=== PATIENT | male | born 1975 ===

== ENCOUNTER 2020-01-12 09:33 | Outpatient (REF) | payer OTHER, SELFPAY ==
[2020-01-12 11:06] LABS: Alanine Aminotransferase 23 U/L (0-40); Albumin Level 4.3 g/dL (3.5-5.0); Alkaline Phosphatase 60 U/L (39-117); Anion Gap 10 (12-20); Aspartate Amino Transferase 14 U/L (5-37); Bilirubin Total 0.4 mg/dL (0.0-1.0); Blood Urea Nitrogen 19 mg/dL (9-16); Calcium 9.4 mg/dL (8.4-10.2); Carbon Dioxide 31 mmol/L (22-29); Chloride 105 mmol/L (96-108); Cholesterol 160 mg/dL; Estimated Glomerular Filt Rate > 60; Glucose Fasting 82 mg/dL (60-99); HDL Cholesterol 40 mg/dL; LDL Cholesterol Calculated 105 mg/dl; Potassium 4.5 mmol/l (3.3-5.1); Sodium 141 mmol/L (135-145); Total Protein 6.9 g/dL (6.5-8.0); Triglycerides 77 mg/dL; Uric Acid 9.1 mg/dL (3.4-7.0)
[2020-01-12 11:25] LABS: Total Protein Urine Random 10 mg/dL (<12)
== END 2020-01-12 09:34 | disposition home or self-care (01) ==
LOC: HO.LAB 09:33
PROVIDERS: PCP Internal Medicine; Visit Provider Internal Medicine
DX: M1A.4710 Other secondary chronic gout, right ankle and foot, without tophus (tophi) (principal); I10 Essential (primary) hypertension; R80.0 Isolated proteinuria
CPT/HCPCS: 36415; 80053; 80061; 84156; 84550

== ENCOUNTER 2020-02-26 06:37 | Outpatient (REF) | payer OTHER, SELFPAY ==
[2020-02-26 07:50] LABS: Glucose Urine UA NEG (NEG); Leukocyte Esterase Urine NEG (NEG); Nitrite Urine NEG (NEG); Specific Gravity - Urine 1.025 (1.005-1.025); Urine Blood NEG (NEG); Urine Ketones NEG (NEG); Urine Protein NEG (NEG-TRACE)
[2020-02-26 07:52] LABS: Appearance Urine CLEAR; Color Urine YELLOW
[2020-02-26 08:01] LABS: MANUAL DIFF FLAG NO
[2020-02-26 08:04] LABS: Basophils Percent Auto 0.4 % (0-2); Eosinophils Absolute Auto 0.2 X10*3/uL (0.0-0.4); Eosinophils Percent Auto 2.1 % (0-4); Hematocrit 45.3 % (42-52); Hemoglobin 14.3 g/dl (14.0-18.0); Imm Gran Abs Auto 0.02 X10*3/uL (0.00-0.03); Imm Gran Pct Auto 0.3 % (0.0-0.4); Lymphocytes Absolute Auto 1.7 X10*3/uL (1.2-4.9); Lymphocytes Percent Auto 22.2 % (20-40); Mean Corpuscular HGB Conc 31.6 g/dl (31.0-36.0); Mean Corpuscular Volume 82.4 fL (80-98); Mean Platelet Volume 11.1 fL (9.4-12.4); Monocytes Absolute Auto 0.8 X10*3/uL (0.1-1.2); Neutrophils Absolute Auto 4.9 X10*3/uL (2.0-8.3); Platelet Count 253 X10*3/uL (160-400); Red Cell Distribution Width 13.5 % (11.0-16.0); White Blood Count 7.5 X10*3/uL (4.8-10.8)
[2020-02-26 09:17] LABS: Anion Gap 11 (12-20); Blood Urea Nitrogen 13 mg/dL (9-16); Carbon Dioxide 29 mmol/L (22-29); Chloride 105 mmol/L (96-108); Estimated Glomerular Filt Rate > 60; Potassium 4.4 mmol/l (3.3-5.1); Sodium 141 mmol/L (135-145)
[2020-02-26 09:26] LABS: Creatinine Urine 146.99 mg/dL; Total Protein Urine Random 12 mg/dL (<12)
== END 2020-02-26 06:38 | disposition home or self-care (01) ==
LOC: HO.LAB 06:37
PROVIDERS: PCP Internal Medicine; Visit Provider Internal Medicine Hypertension Specialist
DX: N18.2 Chronic kidney disease, stage 2 (mild) (principal); R79.89 Other specified abnormal findings of blood chemistry; R80.9 Proteinuria, unspecified
CPT/HCPCS: 36415; 80051; 81003; 82310; 82565; 84156; 84520; 85025

== ENCOUNTER 2020-03-19 13:52 | Outpatient (REF) | payer OTHER, SELFPAY ==
--- NOTE | 2020-03-19 | US_ITS ---
EXAMINATION: US RETROPERITONEAL LIMITED (RENAL ONLY) CLINICAL INFORMATION: Renal stone. COMPARISON: None TECHNIQUE: Real-time imaging of the kidneys. FINDINGS: RIGHT KIDNEY: 10.4 x 6.0 x 4.8 cm (SAG x AP x TRV). The kidney is normal in size, contour, and echogenicity. Renal cortical thickness is normal. No renal calculi or hydronephrosis. There is anechoic cyst upper pole measuring 2.2 x 1.9 x 2.3 cm. An extrarenal kidney pelvises noted. LEFT KIDNEY: 12.0 x 6.2 x 6.1 cm (SAG x AP x TRV). The kidney is normal in size, contour, and echogenicity. Renal cortical thickness is normal. No calculi or focal parenchymal lesions. No hydronephrosis. And extrarenal kidney pelvises seen. US/US renal BI IMPRESSION: Anechoic cyst upper pole right kidney. Bilateral extrarenal kidney pelvises. No echogenic stones seen..
== END 2020-03-19 13:53 | disposition home or self-care (01) ==
LOC: HO.US 13:52
PROVIDERS: PCP Internal Medicine; Visit Provider Internal Medicine Hypertension Specialist
DX: N18.2 Chronic kidney disease, stage 2 (mild) (principal); R79.89 Other specified abnormal findings of blood chemistry; R80.9 Proteinuria, unspecified
CPT/HCPCS: 76775

== ENCOUNTER 2020-04-21 10:59 | Outpatient (REF) | payer OTHER, SELFPAY | END 2020-04-21 11:00 | disposition home or self-care (01) | LOC: HO.LAB 10:59 | PROVIDERS: PCP Internal Medicine; Visit Provider Internal Medicine | DX: Z20.822 Contact with and (suspected) exposure to COVID-19 (principal) | CPT/HCPCS: 36415; C9803; U0003 ==

== ENCOUNTER 2020-06-21 07:48 | Outpatient (REF) | payer OTHER, SELFPAY ==
[2020-06-21 09:03] LABS: Alanine Aminotransferase 32 U/L (0-40); Albumin Level 4.6 g/dL (3.5-5.0); Alkaline Phosphatase 65 U/L (39-117); Anion Gap 13 (12-20); Aspartate Amino Transferase 27 U/L (5-37); Bilirubin Total 0.9 mg/dL (0.0-1.0); Blood Urea Nitrogen 21 mg/dL (9-16); Calcium 9.9 mg/dL (8.4-10.2); Carbon Dioxide 28 mmol/L (22-29); Chloride 104 mmol/L (96-108); Cholesterol 182 mg/dL; Estimated Glomerular Filt Rate > 60; Glucose Fasting 81 mg/dL (60-99); HDL Cholesterol 54 mg/dL; LDL Cholesterol Calculated 113 mg/dl; Sodium 140 mmol/L (135-145); Total Protein 7.7 g/dL (6.5-8.0); Triglycerides 75 mg/dL; Uric Acid 8.3 mg/dL (3.4-7.0)
[2020-06-21 09:06] LABS: Albumin Level 4.7 g/dL (3.5-5.0); Anion Gap 13 (12-20); Blood Urea Nitrogen 22 mg/dL (9-16); Calcium 9.8 mg/dL (8.4-10.2); Carbon Dioxide 28 mmol/L (22-29); Chloride 104 mmol/L (96-108); Estimated Glomerular Filt Rate > 60; Magnesium 1.9 mg/dL (1.6-2.6); Phosphorus 3.9 mg/dL (2.7-4.5); Potassium 5.1 mmol/L (3.3-5.1); Sodium 140 mmol/L (135-145); Uric Acid 8.3 mg/dL (3.4-7.0)
[2020-06-23 16:07] LABS: Calcium (PTHI) 10.4 mg/dL (8.6-10.3); PTHI 38 pg/mL (14-64)
== END 2020-06-21 07:49 | disposition home or self-care (01) ==
LOC: HO.LAB 07:48
PROVIDERS: PCP Internal Medicine; Visit Provider Internal Medicine Hypertension Specialist
DX: I10 Essential (primary) hypertension (principal); M10.9 Gout, unspecified; R79.89 Other specified abnormal findings of blood chemistry; R80.9 Proteinuria, unspecified; N18.2 Chronic kidney disease, stage 2 (mild)
CPT/HCPCS: 36415; 80051; 80053; 80061; 82040; 82310; 82565; 83735; 83970; 84100; 84520; 84550

== ENCOUNTER 2020-06-23 07:40 | Outpatient (REF) | payer OTHER, SELFPAY ==
[2020-06-23 08:17] LABS: Total Volume 24 Hour Urine 2950 mL
[2020-06-23 09:23] LABS: Creatinine, 24Hr Urine 2.3 G/Day (1.0-2.0); Creatinine, mg/dL 76.53; Uric Acid, 24 Hr Urine 764.1 mg/Day (250-750); Uric Acid, mg/dL 25.9 mg/dL
[2020-06-23 09:26] LABS: Creatinine, 24Hr Urine 2.4 G/Day (1.0-2.0); Creatinine, mg/dL 81.26; Phosphorus mg/dL 48.1 mg/dL; Phosphorus, 24 Hr Urine 1.4 G/Day (0.4-1.3); Sodium 24 Hr Urine 277.3 mmol/Day (40-220)
[2020-06-24 20:17] LABS: Calcium, 24 Hr Urine 74 mg/24 h; Calcium/Creatinine Ratio 30 mg/g creat (30-210); Creatinine 24Hr Urine 2.48 g/24 h (0.50-2.15)
[2020-06-27 07:06] LABS: Creatinine, 24H Ur 2.41 g/24 h (0.50-2.15); Magnesium, 24H Urine 99 mg/24 h (28-180); Magnesium, Urine 24H/g Creat 41 mg/g creat (16-90); Total Volume 2950 mL
[2020-06-30 13:48] LABS: 24hr Urine Total Volume 2950 mL/24 h; Creatinine, 24U 2.48 g/24 h (0.50-2.15); Oxalic Acid 24 Urine 38.4 mg/24 h (3.6-38.0)
[2020-07-03 13:48] LABS: Citric Acid, 24hr Urine 319 mg/24 h (100-1300); Citric Acid/Creat Ratio 24U 174 mg/g creat (60-660)
== END 2020-06-23 07:41 | disposition home or self-care (01) ==
LOC: HO.LNP 07:40
PROVIDERS: Visit Provider Internal Medicine Hypertension Specialist
DX: R79.89 Other specified abnormal findings of blood chemistry (principal); R80.9 Proteinuria, unspecified; N18.2 Chronic kidney disease, stage 2 (mild)
CPT/HCPCS: 82340; 82507; 83735; 83945; 84105; 84300; 84560

== ENCOUNTER → 2020-11-07 10:52 | Outpatient (BNVA) | payer OTHER, SELFPAY | PROVIDERS: PCP Internal Medicine; Visit Provider Urology ==

== ENCOUNTER 2020-12-01 15:08 | Emergency (ER) | payer OTHER, SELFPAY ==
--- NOTE | ~2020-12-01 | XR_ITS ---
EXAMINATION: XR LUMBOSACRAL SPINE CLINICAL INFORMATION: Pain, work injury COMPARISON: None TECHNIQUE: Three views of the lumbosacral spine. FINDINGS: Mild right convex curvature of the lumbar spine. No significant loss of vertebral body or disc height. Endplate osteophytes are seen throughout the lumbar spine. No acute fracture. Sacroiliac joints unremarkable. XR/XR lumbar spine 2-3V IMPRESSION: Mild degenerative changes. No acute compression fracture or acute osseous abnormality is seen.
[2020-12-01 18:18] VITALS: BP 119/87; PULSE 68; RESP 14; TEMP 36.6; O2SAT 99; BMI 30.4
--- NOTE | 2020-12-01 18:41 | ED_ITS ---
HPI - Back Pain/Injury General Chief Complaint: Back Pain/Injury Stated Complaint: work inj Time Seen by Provider: 12/01/20 18:11 Source: patient and aerial photograph interpreter Mode of arrival: ambulatory Limitations: no limitations and language barrier History of Present Illness HPI Narrative: 44-year-old male with a past medical history of lower back pain after an accident 3 years ago here with acute on chronic low back pain after lifting a heavy object at work today. Pain radiates to both legs. There is no numbness or tingling. No bowel or bladder incontinence. No saddle anesthesia. No fevers or chills. The patient is ambulatory. He does have a past medical history of kidney disease, gout and high blood pressure. Related Data Previous Rx's Medication Instructions Recorded colchicine 0.6 mg tablet 0.6 mg PO DAILY 90 Days #90 tab 01/30/20 allopurinol 100 mg tablet 100 mg PO DAILY 90 Days #90 tab 03/13/20 lisinopril 10 mg tablet 10 mg PO DAILY 90 Days #90 tab 03/13/20 acetaminophen 300 mg-codeine 30 mg 1 tab PO Q8H #7 tab 11/07/20 tablet diazepam 2 mg tablet (Valium) 2 mg PO DAILY #2 tab 11/07/20 cyclobenzaprine 10 mg tablet 10 mg PO TID PRN #10 tab 12/01/20 hydrocodone 5 mg-acetaminophen 300 1 tab PO Q6H PRN #5 tab 12/01/20 mg tablet lidocaine 5 % topical patch 1 patch TOPICAL DAILY #15 ea 12/01/20 (Lidoderm) Allergies Allergy/AdvReac Type Severity Reaction Status Date / Time ibuprofen Allergy Intermediate contraindic Verified 12/01/20 18:25 ated Review of Systems Review of Systems: Yes all other systems are reviewed and are negative Constitutional: Constitutional: Reports no additional constitutional complaints, Denies body ache(s), Denies chills, Denies fever(s), Denies headache(s) and Denies weakness Eyes: Eyes: Reports no additional eye complaints and Denies change in vision ENT: Reports system reviewed and no additional complaints, except as do cumented, Denies dizziness, Denies headache(s), Denies nasal congestion, Denies nasal discharge and Denies neck pain Cardiovascular: Cardiovascular: Reports no additional cardiovascular complaints, Denies chest pain, Denies leg edema and Denies dyspnea Respiratory: Respiratory: Reports no additional respiratory complaints, Denies cough and Denies dyspnea Gastrointestinal: Gastrointestinal: Reports no additional gastrointestinal complaints, Denies abdominal pain, Denies diarrhea, Denies nausea and Denies vomiting Genitourinary: Genitourinary: Denies urinary incontinence Musculoskeletal: Musculoskeletal: Reports no additional musculoskeletal complaints, Reports back pain, Denies arthralgias, Denies joint swelling, Denies neck pain, Denies numbness and Denies tingling Integumentary/Breasts: Skin/Breast: Reports system reviewed and no additional complaints, except as docu and Denies rash Neurologic: Reports system reviewed and no additional complaints, except as documented, Denies Abnormal speech present, Denies dizziness, Denies head ache(s), Denies numbness, Denies tingling and Denies weakness PMFSH Past Medical History Attestation statement: The following information was validated with the patient. Source: old records reviewed and nursing notes reviewed Medical History Essential hypertension Gout Proteinuria Vasectomy evaluation Surgical History No pertinent past surgical history Family History Family History Father Diabetes Hypertension CVD (cardiovascular disease) Mother No problems noted. Maternal Grandfather Cancer Social History Social History Alcohol intake: current Alcohol intake frequency: a few times a month Alcohol type: beer Advance Directives: No Advance Directives Information Provided: Yes Physical Exam Vital Signs: Vital Signs: Last Vital Signs Temp 97.8 F 12/01/20 18:18 Pulse 68 12/01/20 18:18 Resp 14 12/01/20 18:18 BP 119/87 12/01/20 18:18 Pulse Ox 99 12/01/20 18:18 Body Mass Index 30.4 Const: General: cooperative, healthy appearing, comfortable and no acute distress Orientation/consciousness: patient oriented x3 Limitations: no limitations HENMT: Head: Yes normal to inspection Ears: hearing grossly normal bilaterally General nose exam: Normal external nose present Face and sinus: Yes normal facial exam Mouth: Normal oral and palatal mucosa present Throat: Yes posterior oropharynx normal Eyes: General: appearance normal, both eyes and all related structures Pupils: Equal, round and reactive pupils present Neck: Neck: Yes normal visual inspection Chest: Chest palpation & inspection: normal inspection of the chest Resp: Effort & Inspection: normal respiratory effort Auscultation: clear to auscultation bilaterally Cardio: Rate: regular rate Rhythm: regular rhythm Peripheral pulses: Peripheral pulses 2+ throughout GI: Inspection: Yes normal to inspection Palpation (GI): Soft to palpation and nontender Auscultation: normal bowel sounds Back/Spine/Pelvis: Other: Midline lumbar tenderness with no step-offs or deformities. Patient also has bilateral lumbar soft tissue tenderness. Pain is worsened with bilateral straight leg raise Thoracic/Lumbar Spine: thoracic and lumbar spine normal to inspection Skin: General skin exam: no rashes or lesions noted Neuro: General: patient oriented x3, no focal motor deficits and normal sensation to monofilament Cranial nerves: Yes Equal, round and reactive pupils present Cognition (Neuro): normal cognition Speech: No Abnormal speech present Gait exam (Neuro): Normal gait present Motor exam (neuro): 5/5 motor strength present throughout Extrem: General: Yes normal to inspection Course Course Course Narrative: Acute on chronic low back pain after lifting injury at work. Does have midline tenderness of will check x-rays. No neurological deficits or red flag symptoms. 2030-x-ray shows arthritic changes but no acute finding. Likely lumbar strain. Reviewed worrisome signs and symptoms of when to return to the emergency department. Comfortable discharge home. MDM - Back Pain/Injury Medical Records Attestation: I reviewed the patient's medical records. Lab Data Attestation: I reviewed the patient's lab results. 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 FINDINGS: Mild right convex curvature of the lumbar spine. No significant loss of vertebral body or disc height. Endplate osteophytes are seen throughout the lumbar spine. No acute fracture. Sacroiliac joints unremarkable. XR/XR lumbar spine 2-3V IMPRESSION: Mild degenerative changes. No acute compression fracture or acute osseous abnormality is seen. ECG Data Prior ECG tracings: available for review Discharge Plan Discharge Clinical Impression: Strain of lumbar region Patient Disposition: Home, Self-Care Instructions: Low Back Strain (ED) Additional Instructions: Your x-rays show no acute finding. Heat or ice Gentle stretching No heavy lifting or bending Call work connection for a follow-up appointment ?[phone] Prescriptions: New cyclobenzaprine 10 mg tablet 10 mg PO TID PRN (Reason: muscle spasm) Qty: 10 RF: 0 lidocaine [Lidoderm] 5 % adhesive patch,medicated 1 patch topical DAILY Qty: 15 RF: 0 hydrocodone-acetaminophen 5-300 mg tablet 1 tab PO Q6H PRN (Reason: pain) Qty: 5 RF: 0 No Action colchicine 0.6 mg tablet 0.6 mg PO DAILY 90 Days Qty: 90 RF: 1 lisinopril 10 mg tablet 10 mg PO DAILY 90 Days Qty: 90 RF: 3 allopurinol 100 mg tablet 100 mg PO DAILY 90 Days Qty: 90 RF: 3 diazepam [Valium] 2 mg tablet 2 mg PO DAILY Qty: 2 RF: 0 acetaminophen-codeine 300-30 mg tablet 1 tab PO Q8H Qty: 7 RF: 0 Referrals: Madeleine Polanco MD [Primary Care Provider] - 2 days (as needed) Stand Alone Forms: Work/School Release Print Language: Welsh
== END 2020-12-01 20:34 | disposition home or self-care (01) ==
PROVIDERS: Emergency Provider Internal Medicine; PCP Internal Medicine
DX: S39.012A Strain of muscle, fascia and tendon of lower back, initial encounter (principal); X50.0XXA Overexertion from strenuous movement or load, initial encounter; Y93.9 Activity, unspecified; Y92.9 Unspecified place or not applicable; Y99.0 Civilian activity done for income or pay; Z79.899 Other long term (current) drug therapy
CPT/HCPCS: 72100; 99283

== ENCOUNTER 2021-01-09 06:02 | Outpatient (REF) | payer OTHER, SELFPAY ==
[2021-01-09 07:42] LABS: Anion Gap 12 (12-20); Blood Urea Nitrogen 21 mg/dL (9-16); Calcium 9.8 mg/dL (8.4-10.2); Carbon Dioxide 29 mmol/L (22-29); Chloride 104 mmol/L (96-108); Estimated Glomerular Filt Rate 58; Potassium 4.8 mmol/L (3.3-5.1); Sodium 140 mmol/L (135-145)
[2021-01-09 07:45] LABS: Alanine Aminotransferase 38 U/L (0-40); Albumin Level 4.4 g/dL (3.5-5.0); Alkaline Phosphatase 72 U/L (39-117); Anion Gap 11 (12-20); Aspartate Amino Transferase 27 U/L (5-37); Bilirubin Total 0.7 mg/dL (0.0-1.0); Blood Urea Nitrogen 21 mg/dL (9-16); Calcium 9.8 mg/dL (8.4-10.2); Carbon Dioxide 31 mmol/L (22-29); Chloride 104 mmol/L (96-108); Cholesterol 180 mg/dL; Estimated Glomerular Filt Rate 57; Glucose Fasting 89 mg/dL (60-99); HDL Cholesterol 44 mg/dL; LDL Cholesterol Calculated 120 mg/dl; Potassium 4.9 mmol/L (3.3-5.1); Sodium 141 mmol/L (135-145); Total Protein 7.3 g/dL (6.5-8.0); Triglycerides 83 mg/dL; Uric Acid 7.7 mg/dL (3.4-7.0)
[2021-01-09 08:56] LABS: Creatinine Urine 140.92 mg/dL; Protein/Creatinine Ratio, Ur 0.12 (<0.2); Total Protein Urine Random 17 mg/dL (<12)
== END 2021-01-09 06:03 | disposition home or self-care (01) ==
LOC: HO.LAB 06:02
PROVIDERS: Absent Provider Internal Medicine Hypertension Specialist; PCP Internal Medicine; Visit Provider Internal Medicine
DX: I10 Essential (primary) hypertension (principal); R80.8 Other proteinuria; E78.5 Hyperlipidemia, unspecified; M1A.0710 Idiopathic chronic gout, right ankle and foot, without tophus (tophi)
CPT/HCPCS: 36415; 80051; 80053; 80061; 82310; 82565; 84156; 84520; 84550

== ENCOUNTER 2021-03-24 17:00 | Outpatient (RCR) | payer OTHER, SELFPAY ==
--- NOTE | 2021-02-11 18:15 | MHC.PT.EP ---
[facility] [place] Office [place] Office [place] Office [address] Norm Peacock [address] [phone] F: [phone] F: [phone] F: [phone] F: [phone] Physical Therapy Plan of Care Date of Evaluation: Date of Surgery: n/a Diagnosis: low back pain Assessment: Patient is a 45 year old male presenting to PT with complaints of pain in in his low back. Pt reports onset of pain began November 2020 due to lifting a piece of wood. He presents today with impairments in pain, hip strength, core strength, and posture. 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 Clinical presentation today is most consistent with signs and sx associated with low back pain that is likely myofascial in nature and pt will benefit from skilled PT to address the following problems and impairments noted upon evaluation: pain, hip strength, core strength, and posture . These problems limit the patient with the following functional activities: bending, twisting, lifting, standing >1-2 hr, work (mopping, sweeping). The prescribed treatment plan of care is medically necessary. Co-morbidities of HTN were identified and taken into considerations of plan of care. Pt was educated on HEP, role of PT, prognosis, POC, lumbar anatomy. Frequency and Duration: The patient will be seen 2x week x 2 weeks and 1 x week x 1 week Short Term Goals: Pt will demonstrate improved hip strength by 1/3 MMT in 2 weeks for improved lumbopelvic stability. Pt will demosntrate improved ability to recruit TA muscles as evidence by good PPT in 2 weeks for improved core strength. Pt will demonstrate improved postural awareness by sitting with biomechanically correct posture without cues throughout session to improve overall postural function in 2 weeks. 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 Pt will demonstrate ability to stand x 1 hour with min to no pain in 4 weeks to allow return to PLOF. Pt will demonstrate ability to twist and lift with min to no pain in 4 weeks to improve tolerance to sweeping and mopping. Treatment Plan: Modalities to reduce pain, spasms and effusion. Manual therapy to restore motion and function. Therapeutic exercise to improve strength and flexibility. Neuromuscular re-education for posture and balance. Therapeutic activities to return to functional activities of daily living. Electronically signed by: Philomena Cochran, PT, DPT, ATC Please sign and return to therapist. Thank you for your referral.
--- NOTE | 2021-03-24 17:52 | MHC.PT.DC ---
[facility] [place] Office [place] [facility] [place] Office [address] Norm Peacock [address] [phone] F: [phone] F: [phone] F: [phone] F: [phone] Physical Therapy Discharge Report Diagnosis: low back pain Date of Surgery: n/a Date of Evaluation: 02/11/21 Date of Discharge: 03/24/21 Treatments to Date: 6 Cancellations to Date: 0 No Shows to Date: 0 Discharge Status: Achieved Goals Improved Function Independent with HEP Discharge Summary: Pt demonstrates good improvements since beginning skilled PT allowing him to meet all of his goals. He continues with some mild impairments in posture but is more mindful of this since start of care. Pt is also independent and compliant with his HEP and understands the importance of continued [facility] compliance. At this time max benefits of PT have been provided and skilled PT is no longer indicated. Pt is in agreement with d/c at this time. Electronically signed by: Philomena Cochran, PT, DPT, ATC Please sign and return to therapist. Thank you for your referral.
== END 2021-03-24 17:52 | disposition home or self-care (01) ==
LOC: HO.PT 17:00
PROVIDERS: PCP Internal Medicine; Visit Provider Internal Medicine
DX: M54.50 Low back pain, unspecified (principal)
CPT/HCPCS: 97110; 97140; 97161; 97530

== ENCOUNTER → 2021-06-25 11:37 | Outpatient (BNVA) | payer OTHER, SELFPAY | PROVIDERS: PCP Internal Medicine; Visit Provider Urology | DX: Z30.2 Encounter for sterilization (principal); F41.8 Other specified anxiety disorders | CPT/HCPCS: 55250 ==

== ENCOUNTER 2021-07-02 06:08 | Outpatient (REF) | payer OTHER, SELFPAY ==
[2021-07-02 09:31] LABS: Creatinine Urine 90.27 mg/dL; Protein/Creatinine Ratio, Ur 0.12 (<0.2); Total Protein Urine Random 11 mg/dL (<12)
[2021-07-02 09:39] LABS: Anion Gap 14 (12-20); Blood Urea Nitrogen 18 mg/dL (9-16); Carbon Dioxide 27 mmol/L (22-29); Chloride 104 mmol/L (96-108); Estimated Glomerular Filt Rate 56; Glucose Random 83 mg/dL (60-115); Potassium 4.5 mmol/L (3.3-5.1); Sodium 140 mmol/L (135-145)
== END 2021-07-02 06:09 | disposition home or self-care (01) ==
LOC: HO.LAB 06:08
PROVIDERS: PCP Internal Medicine; Visit Provider Internal Medicine Hypertension Specialist
DX: R80.0 Isolated proteinuria (principal)
CPT/HCPCS: 36415; 80048; 84156

== ENCOUNTER 2021-11-14 07:33 | Outpatient (REF) | payer OTHER, SELFPAY ==
[2021-11-14 08:34] LABS: Alanine Aminotransferase 35 U/L (0-40); Albumin Level 4.6 g/dL (3.5-5.0); Alkaline Phosphatase 69 U/L (39-117); Anion Gap 15 (12-20); Aspartate Amino Transferase 25 U/L (5-37); Bilirubin Total 0.7 mg/dL (0.0-1.0); Blood Urea Nitrogen 20 mg/dL (9-16); Calcium 9.6 mg/dL (8.4-10.2); Carbon Dioxide 25 mmol/L (22-29); Chloride 104 mmol/L (96-108); Cholesterol 206 mg/dL; Estimated Glomerular Filt Rate 59; Glucose Fasting 88 mg/dL (60-99); HDL Cholesterol 55 mg/dL; LDL Cholesterol Calculated 130 mg/dl; Potassium 4.8 mmol/L (3.3-5.1); Sodium 139 mmol/L (135-145); Total Protein 7.8 g/dL (6.5-8.0); Triglycerides 106 mg/dL; Uric Acid 8.1 mg/dL (3.4-7.0)
== END 2021-11-14 07:34 | disposition home or self-care (01) ==
LOC: HO.LAB 07:33
PROVIDERS: PCP Internal Medicine; Visit Provider Internal Medicine
DX: M10.9 Gout, unspecified (principal); I10 Essential (primary) hypertension; E78.5 Hyperlipidemia, unspecified
CPT/HCPCS: 36415; 80053; 80061; 84550

== ENCOUNTER 2022-01-09 08:25 | Outpatient (REF) | payer OTHER, SELFPAY ==
[2022-01-09 10:10] LABS: Anion Gap 14 (12-20); Blood Urea Nitrogen 18 mg/dL (9-16); Calcium 9.4 mg/dL (8.4-10.2); Carbon Dioxide 25 mmol/L (22-29); Chloride 106 mmol/L (96-108); Estimated Glomerular Filt Rate > 60; Glucose Random 86 mg/dL (60-115); Potassium 4.8 mmol/L (3.3-5.1); Sodium 140 mmol/L (135-145)
[2022-01-09 10:12] LABS: Creatinine Urine 111.81 mg/dL; Protein/Creatinine Ratio, Ur 0.16 (<0.2); Total Protein Urine Random 18 mg/dL (<12)
== END 2022-01-09 08:26 | disposition home or self-care (01) ==
LOC: HO.LAB 08:25
PROVIDERS: PCP Internal Medicine; Visit Provider Internal Medicine Hypertension Specialist
DX: N18.2 Chronic kidney disease, stage 2 (mild) (principal)
CPT/HCPCS: 36415; 80048; 84156

== ENCOUNTER 2022-08-03 06:59 | Outpatient (REF) | payer OTHER, SELFPAY ==
[2022-08-03 08:12] LABS: Alanine Aminotransferase 59 U/L (0-40); Albumin Level 4.5 g/dL (3.5-5.0); Alkaline Phosphatase 70 U/L (39-117); Anion Gap 14 (12-20); Aspartate Amino Transferase 38 U/L (5-37); Bilirubin Total 0.6 mg/dL (0.0-1.0); Blood Urea Nitrogen 17 mg/dL (9-16); Carbon Dioxide 28 mmol/L (22-29); Chloride 104 mmol/L (96-108); Cholesterol 185 mg/dL; Estimated Glomerular Filt Rate 54; Glucose Fasting 85 mg/dL (60-99); Glucose Random 85 mg/dL (60-115); HDL Cholesterol 41 mg/dL; LDL Cholesterol Calculated 111 mg/dl; Potassium 4.6 mmol/L (3.3-5.1); Sodium 141 mmol/L (135-145); Total Protein 7.5 g/dL (6.5-8.0); Triglycerides 166 mg/dL
[2022-08-03 08:16] LABS: Uric Acid 8.1 mg/dL (3.4-7.0)
[2022-08-03 08:20] LABS: PSA,Total (Free>4and<10) 1.48 ng/mL (0.00-4.00)
[2022-08-03 09:25] LABS: Creatinine Urine 97.84 mg/dL; Protein/Creatinine Ratio, Ur 0.15 (<0.2); Total Protein Urine Random 15 mg/dL (<12)
== END 2022-08-03 07:00 | disposition home or self-care (01) ==
LOC: HO.LAB 06:59
PROVIDERS: Absent Provider Internal Medicine; PCP Internal Medicine; Visit Provider Internal Medicine Hypertension Specialist
DX: Z12.5 Encounter for screening for malignant neoplasm of prostate (principal); I12.9 Hypertensive chronic kidney disease with stage 1 through stage 4 chronic kidney disease, or unspecified chronic kidney disease; N18.2 Chronic kidney disease, stage 2 (mild); M10.9 Gout, unspecified; E78.5 Hyperlipidemia, unspecified
CPT/HCPCS: 36415; 80048; 80053; 80061; 84153; 84156; 84550

== ENCOUNTER 2023-01-03 15:33 | Outpatient (AMB) | payer OTHER, SELFPAY ==
--- NOTE | 2023-01-03 15:34 | MHC.PC.OV ---
Vital Signs 01/03/23 15:36 Height 5 ft 8 in Weight 204 lb BMI 31.0 BP 120/72 Blood Pressure Location Lt brachial Position Sitting Intake Visit Reasons: bp Follow Up Intake Note: Patient here for a follow up BP General House Worker Required: No Accompanied by: Self / Same As Patient Allergies ibuprofen Allergy (Intermediate, Verified 01/03/23 15:49) contraindicated Medication List - Last Reconciled 01/03/23 by Madeleine Sage MD allopurinol 300 mg PO DAILY 90 days colchicine (gout) 0.6 mg PO DAILY PRN 30 days lisinopril 10 mg PO DAILY 90 days Tobacco use date assessed: 07/14/22 Dental Screening Dental Screen Date: 01/03/23 Did you have a dental visit in the last 12 months?: No Did you have a dental problem in the last 6 months where you did not have access to dental care?: No Was dental information given to patient?: Patient has dentist HPI HPI Comments History of Present Illness Details This is a 47-year old male with hypertension and gout that comes today for follow-up on blood pressure. Blood pressure normal. Has not had a gout attack in over 2 months. No chest pain or shortness of breath. Compliant with medications. [facility] Medical History Physical exam Obesity (BMI 30-39.9) Lumbar pain Vasectomy evaluation Gout Proteinuria Essential hypertension Surgical History History of vasectomy Family History Father Diabetes Hypertension CVD (cardiovascular disease) Mother Hypertension Maternal Grandfather Cancer Family/Other Substance use disorder Mental health disorder Social History Housing: Apartment Alcohol intake: current Alcohol intake frequency: a few times a month Alcohol type: beer Patient Tobacco Use Status: Former Tobacco user Tobacco use type: Cigarette e-Cigarette/Vaping Use: Never Used Second Hand Smoke Exposure: No service: No Current occupational status: employed Current occupational exposures/hazards: No Cognitive needs: No Hearing needs: No Vision needs: Yes Questionnaire Thrive Questionnaire Date Thrive assessed: 07/14/22 CARLOS-7 AMB Questionnaire CARLOS-7 Date CARLOS - 7 assessed: 07/14/22 Source: Developed by Drs. Alexandre Salgado, Shirley Her, Peterson Collins and colleagues, with an educational ariel from [employer]. Review of Systems Const All systems reviewed & are unremarkable except as noted in HPI and below Eyes Reports no additional complaints, Denies change in vision and Denies other visual disturbances Card Denies chest pain at rest, Denies chest pain with activity, Denies edema, Denies irregular heart rhythm, Denies claudication, Denies dyspnea, Denies dyspnea on exertion, Denies orthopnea, Denies paroxysmal nocturnal dyspnea and Denies slow heart rate Resp Denies cough, Denies dyspnea and Denies dyspnea on exertion GI Denies abdominal pain, Denies change in bowel habits, Denies excessive flatus, Denies nausea and Denies vomiting Denies urinary hesitancy, Denies urinary incontinence and Denies urinary urgency Musc Denies abnormal gait, Denies atrophy, Denies deformity and Denies limited range of motion Skin/Breast Denies bleeding lesions, Denies changing lesions and Denies rash Neuro Denies abnormal gait and Denies lack of coordination Physical exam (Primary Care) Vital Signs: Last Vital Signs BP 120/72 01/03/23 15:36 BMI result Body Mass Index 31.0 Tobacco/Smoking Status: Tobacco use Status Tobacco use date assessed 07/14/22 01/03/23 15:36 Patient Tobacco Use Status Former Tobacco user 01/03/23 15:36 Tobacco use type Cigarette 01/03/23 15:36 e-Cigarette/Vaping Use Never Used 01/03/23 15:36 Thrive Assessment: Date of Thrive Assessment Date Thrive assessed 07/14/22 01/03/23 15:36 Eyes General: appearance normal, both eyes and all related structures Eyelids: Yes eyelids normal Conjunctivae: conjunctivae normal Neck Neck: Yes normal visual inspection and Yes supple Resp Effort & Inspection: normal respiratory effort Auscultation: clear to auscultation bilaterally Cardio Jugular venous distension: no JVD Rate: regular rate Rhythm: regular rhythm Heart sounds: S1 normal heart sound present and S2 normal heart sound present Extrem General: Yes full ROM Assessment and Plan Assessment & Plan (1) Essential hypertension: Code(s): I10 - Essential (primary) hypertension Plan: Continue lisinopril. Blood pressure goal is equal or less than 130/80. (2) Gout: Code(s): M10.9 - Gout, unspecified Qualifiers: Gout site: foot Gout etiology: unspecified cause Chronicity: chronic Laterality: right Qualified Code(s): M1A.0710 - Idiopathic chronic gout, right ankle and foot, without tophus (tophi) Plan: Continue allopurinol for gout prophylaxis. Coding Level of Care Code Est Pt Level 3 (10464) Diagnoses Essential hypertension I10 Chronic gout of right foot, unspecified cause M1A.0710 Gout site: foot Gout etiology: unspecified cause Chronicity: chronic Laterality: right Time Spent (min) 19
[2023-01-03 15:36] VITALS: BP 120/72; BMI 31.0
== END 2023-01-03 15:55 | disposition home or self-care (01) ==
PROVIDERS: PCP Internal Medicine; Visit Provider Internal Medicine
DX: I10 Essential (primary) hypertension (principal); M1A.0710 Idiopathic chronic gout, right ankle and foot, without tophus (tophi)
CPT/HCPCS: 99213

== ENCOUNTER 2023-02-24 11:08 | Outpatient (AMB) | payer OTHER, SELFPAY ==
[2023-02-24 11:16] VITALS: BP 124/70; PULSE 75; O2SAT 97; BMI 30.4
--- NOTE | 2023-02-24 11:16 | HO.NEPHOV_ITS ---
[facility] Medical History Physical exam Obesity (BMI 30-39.9) Lumbar pain Vasectomy evaluation Gout Proteinuria Essential hypertension Surgical History History of vasectomy Family History Father Diabetes Hypertension CVD (cardiovascular disease) Mother Hypertension Maternal Grandfather Cancer Family/Other Substance use disorder Mental health disorder Social History Housing: Apartment Alcohol intake: current Alcohol intake frequency: a few times a month Alcohol type: beer Patient Tobacco Use Status: Former Tobacco user Tobacco use type: Cigarette e-Cigarette/Vaping Use: Never Used Second Hand Smoke Exposure: No service: No Current occupational status: employed Current occupational exposures/hazards: No Cognitive needs: No Hearing needs: No Vision needs: Yes Vital Signs 02/24/23 11:16 Height 5 ft 8 in Weight 200 lb BMI 30.4 BP 124/70 Blood Pressure Location Rt brachial Position Sitting Pulse 75 Pulse Source Pulse Oximeter Pulse Oximetry (%) 97 Oxygen Delivery Method Room Air Physical Exam Vital Signs: Last Vital Signs Pulse 75 02/24/23 11:16 BP 124/70 02/24/23 11:16 Pulse Ox 97 02/24/23 11:16 Oxygen Delivery Method Room Air 02/24/23 11:16 BMI result Body Mass Index 30.4 Coding
--- NOTE | 2023-02-24 11:23 | HO.NEPHOV_ITS ---
HPI HPI Comments History of Present Illness Details Middle-aged man with a history of proteinuria and hypertension. About a year ago he moved from [place]. He was told that he had proteinuria. However 20 fluid collection showed protein excretion of 4 mg with a urine protein creatinine ratio for test 84. Serum creatinine has been stable between 1.0-1.2 mg/dL. Ms. No other history of kidney disease. This is a family history of end stage renal disease father and his uncle were on dialysis. But they had diabetes for almost 20 years. History of gout. The creatinine clearance was 100 mL/minute with serum creatinine 1.2 based on 20 fluid collection back in January 2022. Today has no new complaints [facility] Medical History Physical exam Obesity (BMI 30-39.9) Lumbar pain Vasectomy evaluation Gout Proteinuria Essential hypertension Surgical History History of vasectomy Family History Father Diabetes Hypertension CVD (cardiovascular disease) Mother Hypertension Maternal Grandfather Cancer Family/Other Substance use disorder Mental health disorder Social History Housing: Apartment Alcohol intake: current Alcohol intake frequency: a few times a month Alcohol type: beer Patient Tobacco Use Status: Former Tobacco user Tobacco use type: Cigarette e-Cigarette/Vaping Use: Never Used Second Hand Smoke Exposure: No service: No Current occupational status: employed Current occupational exposures/hazards: No Cognitive needs: No Hearing needs: No Vision needs: Yes Vital Signs 02/24/23 11:16 Height 5 ft 8 in Weight 200 lb BMI 30.4 BP 124/70 Blood Pressure Location Rt brachial Position Sitting Pulse 75 Pulse Source Pulse Oximeter Pulse Oximetry (%) 97 Oxygen Delivery Method Room Air Physical Exam Vital Signs: Last Vital Signs Pulse 75 02/24/23 11:16 BP 124/70 02/24/23 11:16 Pulse Ox 97 02/24/23 11:16 Oxygen Delivery Method Room Air 02/24/23 11:16 BMI result Body Mass Index 30.4 Const General: comfortable Nutritional Appearance: well nourished Orientation/consciousness: patient oriented x3 HEENT Head: No normal to inspection Mouth: moist mucous membranes Neck Neck: Yes supple and Yes no JVD Resp Auscultation: clear to auscultation bilaterally, no rales and rub present Cardio Jugular venous distension: no JVD Palpation: no palpable S3 and no palpable S4 Heart sounds: no rubs GI Palpation (GI): Soft to palpation and nontender Percussion: No Fluid wave present General: Yes no CVA tenderness Back/Spine/Pelvis Back: no CVA tenderness Skin General skin exam: no rashes or lesions noted Neuro General: patient oriented x3 Extrem General: Yes no pedal edema and No clubbing Results Reviewed Results Reviewed: Labs was reviewed recent creatinine 1.42 as of July 2022. This is higher than his baseline of 1.2. Assessment & Plan Assessment & Plan (1) Essential hypertension: Code(s): I10 - Essential (primary) hypertension Plan: Blood pressure is well controlled Goals met and blood pressures in 130-80. Increased interest and low-sodium diet. No changes were made to his antihypertensive regimen (2) Proteinuria: Code(s): R80.9 - Proteinuria, unspecified Qualifiers: Proteinuria type: unspecified Qualified Code(s): R80.9 - Proteinuria, unspecified Plan: Minimal proteinuria. Continue lisinopril for renal protection monitor urine output excretion (3) CKD (chronic kidney disease) stage 3, GFR 30-59 ml/min: Code(s): N18.30 - Chronic kidney disease, stage 3 unspecified Plan: Mild CKD in a setting of hypertension however has been a recent bump in serum creatinine which is of concern I will recheck serum creatinine again today. If serum creatinine stays elevated or higher than 1.40 may require further workup. I will follow this closely. (4) Gout: Code(s): M10.9 - Gout, unspecified Qualifiers: Gout site: foot Gout etiology: unspecified cause Chronicity: chronic Laterality: right Qualified Code(s): M1A.0710 - Idiopathic chronic gout, right ankle and foot, without tophus (tophi) Plan: History of gout. He is on colchicine. No further episodes of gout. Will recheck the serum uric acid. He should stay on low purine diet as well Orders: Orders Creatinine Today N18.30 - Chronic kidney disease, stage 3 unspecified Calcium Today N18.30 - Chronic kidney disease, stage 3 unspecified Complete Blood Count no Diff Today N18.30 - Chronic kidney disease, stage 3 unspecified Electrolytes Today N18.30 - Chronic kidney disease, stage 3 unspecified Blood Urea Nitrogen Today N18.30 - Chronic kidney disease, stage 3 unspecified Uric Acid Today N18.30 - Chronic kidney disease, stage 3 unspecified Total Protein Urine Random Today N18.30 - Chronic kidney disease, stage 3 unspecified Creatinine Urine Today N18.30 - Chronic kidney disease, stage 3 unspecified Coding Level of Care Code Est Pt Level 4 (06493) Diagnoses Essential hypertension I10 Proteinuria, unspecified type R80.9 Proteinuria type: unspecified CKD (chronic kidney disease) stage 3, GFR 30-59 ml/min N18.30 Chronic gout of right foot, unspecified cause M1A.0710 Gout site: foot Gout etiology: unspecified cause Chronicity: chronic Laterality: right
== END 2023-02-24 11:31 | disposition home or self-care (01) ==
PROVIDERS: PCP Internal Medicine; Visit Provider Internal Medicine Hypertension Specialist
DX: I12.9 Hypertensive chronic kidney disease with stage 1 through stage 4 chronic kidney disease, or unspecified chronic kidney disease (principal); R80.9 Proteinuria, unspecified; N18.30 Chronic kidney disease, stage 3 unspecified; M1A.0710 Idiopathic chronic gout, right ankle and foot, without tophus (tophi)
CPT/HCPCS: 99214

== ENCOUNTER → 2023-02-24 11:08 | Outpatient (BNVA) | payer OTHER, SELFPAY | PROVIDERS: PCP Internal Medicine; Visit Provider Internal Medicine Hypertension Specialist ==

== ENCOUNTER 2023-02-24 11:37 | Outpatient (REF) | payer OTHER, SELFPAY ==
[2023-02-24 13:31] LABS: Hematocrit 44.9 % (42.0-52.0); Hemoglobin 14.8 g/dl (14.0-18.0); Mean Corpuscular Volume 81.9 fL (80.0-98.0); Mean Platelet Volume 10.4 fL (9.4-12.4); Platelet Count 281 X10*3/uL (160-400); Red Blood Count 5.48 X10*6/uL (4.60-5.80); Red Cell Distribution Width 13.7 % (11.0-16.0); White Blood Count 8.6 X10*3/uL (4.8-10.8)
[2023-02-24 13:56] LABS: Anion Gap 11 (12-20); Blood Urea Nitrogen 17 mg/dL (9-16); Calcium 10.1 mg/dL (8.4-10.2); Carbon Dioxide 29 mmol/L (22-29); Chloride 103 mmol/L (96-108); Estimated Glomerular Filt Rate > 60; Potassium 3.9 mmol/L (3.3-5.1); Sodium 139 mmol/L (135-145); Uric Acid 6.2 mg/dL (3.4-7.0)
[2023-02-24 14:07] LABS: Total Protein Urine Random 18 mg/dL (<12)
== END 2023-02-24 11:38 | disposition home or self-care (01) ==
LOC: HO.10HDL 11:37
PROVIDERS: Visit Provider Internal Medicine Hypertension Specialist
DX: N18.30 Chronic kidney disease, stage 3 unspecified (principal)
CPT/HCPCS: 36415; 80051; 82310; 82565; 82570; 84156; 84520; 84550; 85027

== ENCOUNTER 2023-05-31 08:52 | Day surgery (SDC) | payer OTHER, SELFPAY ==
[2023-05-26 16:33] VITALS: BMI 31.0
[2023-05-31 09:12] VITALS: BP 140/89; PULSE 76; RESP 18; TEMP 36.8; O2SAT 97; BMI 29.8
--- NOTE | 2023-05-31 09:32 | P.HPSUR_ITS ---
Pre-Procedural Eval Section A - 24 Hr Update-Section A only Date of Service: 05/31/23 Section B - Complete if H&P > 30 days Chief Complaint: Encounter for screening for malignant neoplasm of Relevant Family History (Specify if Yes): No Relevant Social History: None Present Medications: see Short Stay Collaborative assessment Medical History: Significant History (lumbar pain Vasectomy evaluation Gout Pr oteinuria Essential hypertension) History of Previous Operations: Relevant previous surgery/procedure and date(s) (vasectomy) Allergies: Allergies Allergy/AdvReac Type Severity Reaction Status Date / Time ibuprofen Allergy Intermediate contraindic Verified 02/24/23 11:16 ated Review of Systems Sugical H&P ROS: Negative: Constitution, Cardiovascular, Respiratory, Neurological, Psychiatric, Hem-Onc, Allergic/Immunologic, Gastrointestinal, Genitourinary, Musculoskeletal, Integumentary, Endocrine and Eyes/Ears/Nose/Throat Exam Surgical H&P Exam: Normal: HEENT, Normal: Heart, Normal: Lungs, Normal: Extremities, Normal: Abdomen, Normal: Skin and Normal: Neurological Plan Diagnosis/Plan: Unchanged I have reviewed the history and physical and performed a pertinent physical examination on my patient. No changes have occurred unless specified. Time Spent With Patient Time: Total time managing care of this patient today ____ minutes.
[2023-05-31] MEDS: Lactated Ringers 1,000 ML 50 ML IVCONT (09:33)
--- NOTE | 2023-05-31 10:20 | W.PM.OPN ---
Operative Note Operative Note Date of Service: 05/31/23 Narrative: Operative Information Procedure Description: Colonoscopy Indication: screening Anesthesia: MAC COLONOSCOPY Instrument: Olympus variable stiffness pediatric scope 190L Colonoscopy Monitoring: Vital signs and clinical assessment, continuous EKG monitoring, Pulse oximetry, Carbon Dioxide monitoring and blood pressure monitoring were done throughout the procedure. Colon withdrawal time was 8 minutes. Procedure: The patient was placed in the left lateral decubitis position and pre-procedure medications were administered. After a digital rectal examination of the ano-rectum, the video colonoscope was inserted into the rectum and advanced through the colon to the cecum/TI. The colonoscope was slowly withdrawn in a retrograde panoramic fashion and the colon mucosa was carefully examined including a retroflexed view of the rectum. Findings and interventions are described below. Procedure Difficulty: easy Findings: Terminal Ileum-normal Cecum:normal Rgith sided retroflexion- normal Ascending Colon: normal Transverse Colon -normal Descending Colon: 6-8 mm sessile polyp removed with cold snare Sigmoid Colon: normal Rectum: Retroflexion with small internal hemorrhoids, grade I Anorectum - normal Colon preparation: [place] Bowel Preparation Scale Right colon; 2 Transverse colon: 3 Left colon; 3 (0 = Unprepared colon segment with mucosa not seen due to solid stool that cannot be cleared. 1 = Portion of mucosa of the colon segment seen, but other areas of the colon segment not well seen due to staining, residual stool and/or opaque liquid. 2 = Minor amount of residual staining, small fragments of stool and/or opaque liquid, but mucosa of colon segment seen well. 3 = Entire mucosa of colon segment seen well with no residual staining, small fragments of stool or opaque liquid) Impression and Post Procedure Diagnosis: polyp internal hemorrhoids Plan: High fiber diet leaflet Avoid straining at stool, epsom salts and sitz bath, anusol supps or cream Repeat Colonoscopy in 5 years if adenomatous polyp, 10 yrs if hyperplastic or earlier if clinically indicated Above findings were reviewed with the patient and relevant handouts were provided if indicated.
[2023-05-31 10:56] VITALS: BP 104/68; PULSE 85; RESP 18; TEMP 36.3; O2SAT 100
[2023-05-31 11:11] VITALS: BP 113/80; PULSE 67; RESP 16; TEMP 36.1; O2SAT 97
--- NOTE | 2023-05-31 12:15 | HO.ANESPROP2 ---
HPI - Anesthesia Eval Consult details Narrative: 47-year-old male presenting for colonoscopy PMFSH Active Problems Active Problems: All Active Problems (Updated 02/24/23 @ 13:17 by Anthony Kendrick MD) CKD (chronic kidney disease) stage 3, GFR 30-59 ml/min (Acute) Physical exam (Acute) Obesity (BMI 30-39.9) (Acute) Lumbar pain (Acute) Anxiety about health (Acute) Vasectomy evaluation (Acute) Gout (Acute) Proteinuria (Acute) Essential hypertension (Acute) Past Medical History Medical History Physical exam Obesity (BMI 30-39.9) Lumbar pain Vasectomy evaluation Gout Proteinuria Essential hypertension Family History Family History Father Diabetes Hypertension CVD (cardiovascular disease) Mother Hypertension Maternal Grandfather Cancer Family/Other Substance use disorder Mental health disorder Family history of problems with anesthesia: No Surgical History Surgical History History of vasectomy History of Problems with Anesthesia: No Social History Social History Housing: Apartment Alcohol intake: current Alcohol intake frequency: does not drink Alcohol type: beer Patient Tobacco Use Status: Former Tobacco user Tobacco use type: Cigarette e-Cigarette/Vaping Use: Never Used Second Hand Smoke Exposure: No service: No Current occupational status: employed Current occupational exposures/hazards: No Cognitive needs: No Hearing needs: No Vision needs: Yes Meds Allergies Allergy/AdvReac Type Severity Reaction Status Date / Time ibuprofen Allergy Intermediate contraindic Verified 02/24/23 11:16 ated Exam Height,Weight and Vital Signs: Height 5 ft 8 in Weight 195 lb 12.8 oz Last Vital Signs Temp 97 F 05/31/23 11:11 Pulse 67 05/31/23 11:11 Resp 16 05/31/23 11:11 BP 113/80 05/31/23 11:11 Pulse Ox 97 05/31/23 11:11 O2 Del Method Room Air 05/31/23 11:11 O2 Flow Rate 6 05/31/23 10:56 Airway Mallampati Class: II TM Dist: >3cm Neck ROM: Full Loose/Missing/Broken Teeth: No Assessment and Plan Assessment Anesthesia Assessment: Anesthesia Plan Discussed Final Anesthetic Review Family History of Problems with Anesthesia: No History of Problems with Anesthesia: No NPO: Yes ASA Class: III Final Preanesthetic Review: No Changes in Pt Med Stat, Meds/Allgs Chart Reviewed, Consent Obtained/Reviewed and Anes Risks/Benef Reviewed Patient Risk: Intermediate Procedure Risk: Low Anesthetic Plan Anesthetic Plan: MAC: Disposition: Standard PACU
== END 2023-05-31 11:55 | disposition home or self-care (01) ==
PROVIDERS: PCP Internal Medicine; Visit Provider Internal Medicine Gastroenterology
PROC: 0DJD8ZZ Inspection of Lower Intestinal Tract, Via Natural or Artificial Opening Endoscopic (ICD-10-PCS; CPT 45378; principal; 2023-05-31 11:10)
DX: Z12.11 Encounter for screening for malignant neoplasm of colon (principal); K63.5 Polyp of colon; K64.0 First degree hemorrhoids; I10 Essential (primary) hypertension; M10.9 Gout, unspecified; R80.9 Proteinuria, unspecified; Z98.52 Vasectomy status; Z79.899 Other long term (current) drug therapy; Z88.8 Allergy status to other drugs, medicaments and biological substances; Z87.891 Personal history of nicotine dependence
CPT/HCPCS: 45385; 88305; J2704

== ENCOUNTER → 2023-05-31 08:52 | Outpatient (BNV) | payer OTHER, SELFPAY | PROVIDERS: PCP Internal Medicine; Visit Provider Internal Medicine Gastroenterology | DX: Z12.11 Encounter for screening for malignant neoplasm of colon (principal); K63.5 Polyp of colon; K64.8 Other hemorrhoids | CPT/HCPCS: 45385 ==

== ENCOUNTER 2023-07-18 14:06 | Outpatient (AMB) | payer OTHER, SELFPAY ==
[2023-07-18 14:08] VITALS: BP 108/70; BMI 30.3
--- NOTE | 2023-07-18 14:08 | MHC.PC.OV ---
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 Required: No Accompanied by: Self / Same As Patient Allergies ibuprofen Allergy (Intermediate, Verified 07/18/23 14:48) contraindicated Medication List - Last Reconciled 07/18/23 by Madeleine Sage MD allopurinol 300 mg PO DAILY 90 days lisinopril 10 mg PO DAILY 90 days Tobacco use date assessed: 07/18/23 Dental Screening Dental Screen Date: 07/18/23 Did you have a dental visit in the last 12 months?: No Did you have a dental problem in the last 6 months where you did not have access to dental care?: No Was dental information given to patient?: Patient has dentist HPI HPI Comments History of Present Illness Details This is a 47-year-old male that comes for his physical exam. Last colonoscopy was May 2023 and was normal. Next colonoscopy should be in 10 years. No chest pain or shortness of breath. Complains of an ear lesion in the right auricle that bothers him has been present for few months. [facility] Medical History (Updated 07/18/23 @ 14:57 by Madeleine Sage MD) CKD (chronic kidney disease) stage 3, GFR 30-59 ml/min Physical exam Obesity (BMI 30-39.9) Lumbar pain Vasectomy evaluation Gout Proteinuria Essential hypertension Surgical History History of colonoscopy History of vasectomy Family History Father Diabetes Hypertension CVD (cardiovascular disease) Mother Hypertension Maternal Grandfather Cancer Family/Other Substance use disorder Mental health disorder Social History (Updated 07/18/23 @ 14:52 by Madeleine Sage MD) Housing: Apartment Alcohol intake: current Alcohol intake frequency: a few times a week Alcohol type: beer Patient Tobacco Use Status: Former Tobacco user Tobacco use type: Cigarette e-Cigarette/Vaping Use: Never Used Second Hand Smoke Exposure: No service: No Current occupational status: employed Current occupational exposures/hazards: No Cognitive needs: No Hearing needs: No Vision needs: Yes Questionnaire PHQ-9 Over the last 2 weeks, how often have you been bothered by any of the following problems? 1. Little interest or pleasure in doing things: not at all 2. Feeling down, depressed, or hopeless: not at all 3. Trouble falling or staying asleep, or sleeping too much: not at all 4. Feeling tired or having little energy: not at all 5. Poor appetite or overeating: not at all 6. Feeling bad about yourself - or that you are a failure or have let yourself or your family down: not at all 7. Trouble concentrating on things, such as reading the newspaper or watching television: not at all 8. Moving or speaking so slowly that other people could have noticed. Or the opposite - being so fidgety or restless that you have been moving around a lot more than usual: not at all 9. Thoughts that you would be better off or of hurting yourself in some way: not at all Total score: 0 Depression Screening Interpretation: Negative Depression Screening Done: Yes 86078 - PHQ-9 Billing: Yes Source: Developed by Drs. Alexandre Salgado, Shirley Her, Peterson Collins and colleagues, with an educational ariel from [employer], a division of [employer]. Thrive Questionnaire Date Thrive assessed: 07/18/23 I am a: Patient What is your living situation today?: I have a steady place to live Within the past 12 months, did the food you bought not last and you didn't have the money to get more?: Never true Within the past 12 months, did you worry whether your food would run out before you got money to buy more?: Never true Do you have trouble paying for medicines?: No Do you have trouble getting transportation to medical appointments?: No Do you have trouble paying your heating and electricity bill?: No Do you have trouble taking care of your child, family member or friend?: No Do you have trouble with day-to-day activities such as bathing, preparing meals, shopping, managing finances, etc.?: No Are you currently unemployed and looking for a job?: No Are you interested in more education?: No Please select the resources that you would like help with: None Currently or been in a relationship where the following occur: no concerns reported THRIVE Score: 0 AUDIT C Alcohol Use Questionnaire (AUDIT-C) 1. How often do you have a drink containing alcohol?: 2-4 times a month 2. How many drinks containing alcohol do you have on a typical day when you are drinking?: 1 or 2 3. How often do you have six or more drinks on one occasion?: Never Total Score: 2 Score Reviewed/Action Taken: No CARLOS-7 AMB Questionnaire CARLOS-7 Date CARLOS - 7 assessed: 07/18/23 Feeling nervous, anxious, or on edge: 0 = Not at all Not being able to stop or control worryin = Not at all Worrying too much about different things: 0 = Not at all Trouble relaxin = Not at all Being so restless that it is hard to sit still: 0 = Not at all Becoming easily annoyed or irritable: 0 = Not at all Feeling afraid as if something awful might happen: 0 = Not at all Total CARLOS-7 score (0-4 normal; 5-9 mild; 10-14 moderate; 15-21 severe): 0 Source: Developed by Drs. Alexandre Salgado, Shirley Her, Peterson Collins and colleagues, with an educational ariel from [employer] a division [employer]. CARLOS-7 Assessment Billing CARLOS-7 Assessment Tool: CARLOS-7 Assessment 51276 Review of Systems Const All systems reviewed & are unremarkable except as noted in HPI and below Eyes Reports no additional complaints, Denies change in vision and Denies other visual disturbances Card Denies chest pain at rest, Denies chest pain with activity, Denies edema, Denies irregular heart rhythm, Denies claudication, Denies dyspnea, Denies dyspnea on exertion, Denies orthopnea, Denies paroxysmal nocturnal dyspnea and Denies slow heart rate Resp Denies cough, Denies dyspnea and Denies dyspnea on exertion GI Denies abdominal pain, Denies change in bowel habits, Denies excessive flatus, Denies nausea and Denies vomiting Denies urinary hesitancy, Denies urinary incontinence and Denies urinary urgency Physical exam (Primary Care) Vital Signs: Last Vital Signs BP 108/70 07/18/23 14:08 BMI result Body Mass Index 30.3 Tobacco/Smoking Status: Tobacco use Status Tobacco use date assessed 07/18/23 07/18/23 14:13 Patient Tobacco Use Status Former Tobacco user 07/18/23 14:08 Tobacco use type Cigarette 07/18/23 14:08 e-Cigarette/Vaping Use Never Used 07/18/23 14:08 PHQ-9: PHQ-9 Score PHQ-9: Total score 0 07/18/23 14:13 Depression Screening Interpretation: Negative Thrive Assessment: Date of Thrive Assessment Date Thrive assessed 07/18/23 07/18/23 14:13 Currently or been in a relationship where the following occur: no concerns reported Const Orientation/consciousness: patient oriented x3 HENMT Ears: external ear abnormal (ear lump in right auricle) Eyes General: appearance normal, both eyes and all related structures Eyelids: Yes eyelids normal Conjunctivae: conjunctivae normal Neck Neck: Yes normal visual inspection and Yes supple Resp Effort & Inspection: normal respiratory effort Auscultation: clear to auscultation bilaterally Cardio Jugular venous distension: no JVD Rate: regular rate Rhythm: regular rhythm Heart sounds: S1 normal heart sound present and S2 normal heart sound present GI Inspection: Yes normal to inspection Palpation (GI): Soft to palpation and nontender Auscultation: normal bowel sounds Skin General skin exam: no rashes or lesions noted Neuro General: patient oriented x3 and no focal motor deficits Extrem General: Yes full ROM Psych Appearance: grossly normal Assessment and Plan Assessment & Plan (1) Physical exam: Code(s): Z00.00 - Encounter for general adult medical examination without abnormal findings Plan: Repeat in a year. Orders: Referrals Ear/Nose/Throat Referral H93.90 - Unspecified disorder of ear, unspecified ear Coding Level of Care Code Est Pt Prev Care 40-64y(01552) Diagnoses Physical exam Z00.00 Additional Codes CARLOS-7 Assessment Billing - CARLOS-7 Assessment Tool: CARLOS-7 Assessment 49755 ([id number]) Time Spent (min) 30
== END 2023-07-18 14:58 | disposition home or self-care (01) ==
PROVIDERS: PCP Internal Medicine; Visit Provider Internal Medicine
DX: Z00.00 Encounter for general adult medical examination without abnormal findings (principal)
CPT/HCPCS: 99396

== ENCOUNTER 2023-08-25 10:49 | Outpatient (AMB) | payer OTHER, SELFPAY ==
[2023-08-25 10:53] VITALS: BP 112/66; PULSE 93; O2SAT 96; BMI 30.4
--- NOTE | 2023-08-25 10:53 | HO.NEPHOV_ITS ---
Vital Signs 08/25/23 10:53 Height 5 ft 8 in Weight 200 lb BMI 30.4 BP 112/66 Blood Pressure Location Lt brachial Position Sitting Pulse 93 Pulse Source Pulse Oximeter Pulse Oximetry (%) 96 Oxygen Delivery Method Room Air Intake Visit Reasons: 6 mon follow up/ Confirmed Shortage Worker Required: Yes Shortage Worker Name: Isai [id number] Accompanied by: Self / Same As Patient Allergies ibuprofen Allergy (Intermediate, Verified 08/25/23 10:55) contraindicated HPI Comments Details: Middle-aged man with a history of proteinuria and hypertension. About a year ago he moved from [place]. He was told that he had proteinuria. However 20 fluid collection showed protein excretion of 4 mg with a urine protein creatinine ratio for test 84. Serum creatinine has been stable between 1.0-1.2 mg/dL. Ms. No other history of kidney disease. This is a family history of end stage renal disease father and his uncle were on dialysis. But they had diabetes for almost 20 years. History of gout. The creatinine clearance was 100 mL/minute with serum creatinine 1.2 based on 20 fluid collection back in January 2022. Today has no new complaints Had 1 episode gout in May 2023 [facility] Medical History (Updated 07/18/23 @ 14:57 by Madeleine Sage MD) CKD (chronic kidney disease) stage 3, GFR 30-59 ml/min Physical exam Obesity (BMI 30-39.9) Lumbar pain Vasectomy evaluation Gout Proteinuria Essential hypertension Surgical History History of colonoscopy History of vasectomy Family History Father Diabetes Hypertension CVD (cardiovascular disease) Mother Hypertension Maternal Grandfather Cancer Family/Other Substance use disorder Mental health disorder Social History Housing: Apartment Alcohol intake: current Alcohol intake frequency: a few times a week Alcohol type: beer Patient Tobacco Use Status: Former Tobacco user Tobacco use type: Cigarette e-Cigarette/Vaping Use: Never Used Second Hand Smoke Exposure: No service: No Current occupational status: employed Current occupational exposures/hazards: No Cognitive needs: No Hearing needs: No Vision needs: Yes Physical Exam Vital Signs: Last Vital Signs Pulse 93 08/25/23 10:53 BP 112/66 08/25/23 10:53 Pulse Ox 96 08/25/23 10:53 Oxygen Delivery Method Room Air 08/25/23 10:53 BMI result Body Mass Index 30.4 Results Reviewed Nephrology Results: Hgb 14.8 g/dl (14.0-18.0) 02/24/23 WBC 8.6 X10*3/uL (4.8-10.8) 02/24/23 Plt Count 281 X10*3/uL (160-400) 02/24/23 Sodium 139 mmol/L (135-145) 02/24/23 Potassium 3.9 mmol/L (3.3-5.1) 02/24/23 Chloride 103 mmol/L (96-108) 02/24/23 Carbon Dioxide 29 mmol/L (22-29) 02/24/23 BUN 17 mg/dL (9-16) H 02/24/23 Creatinine 1.17 mg/dL (0.5-1.4) 02/24/23 Calcium 10.1 mg/dL (8.4-10.2) 02/24/23 Urine Creatinine 102.50 mg/dL 02/24/23 Protein/Creatinin Ratio 0.15 (<0.2) 08/03/22 Assessment & Plan Assessment & Plan (1) Essential hypertension: Code(s): I10 - Essential (primary) hypertension Category: Medical Plan: Blood pressure is well controlled Goals met and blood pressures in 130-80. Stay on ow-sodium diet. No changes were made to his antihypertensive regimen (2) Proteinuria: Code(s): R80.9 - Proteinuria, unspecified Category: Medical Qualifiers: Proteinuria type: unspecified Qualified Code(s): R80.9 - Proteinuria, unspecified Plan: Minimal proteinuria. Continue lisinopril for renal protection monitor urine output excretion (3) CKD (chronic kidney disease) stage 3, GFR 30-59 ml/min: Code(s): N18.30 - Chronic kidney disease, stage 3 unspecified Category: Medical Plan: Mild CKD in a setting of hypertension however has been a recent bump in serum creatinine which is of concern I will recheck serum creatinine again today. I will follow this closely. (4) Gout: Code(s): M10.9 - Gout, unspecified Category: Medical Qualifiers: Gout site: foot Gout etiology: unspecified cause Chronicity: chronic Laterality: right Qualified Code(s): M1A.0710 - Idiopathic chronic gout, right ankle and foot, without tophus (tophi) Plan: History of gout. He is on colchicine. No further episodes of gout. Will recheck the serum uric acid. He should stay on low purine diet as well Orders: Orders Complete Blood Count Auto Diff Today I10 - Essential (primary) hypertension, N18.30 - Chronic kidney disease, stage 3 unspecified Uric Acid Today I10 - Essential (primary) hypertension Total Protein Urine Random Today I10 - Essential (primary) hypertension UA and rflx microscopic Today I10 - Essential (primary) hypertension Creatinine Urine Today I10 - Essential (primary) hypertension, N05.9 - Unspecified nephritic syndrome with unspecified morphologic changes Basic Metabolic Panel Today I10 - Essential (primary) hypertension Coding Level of Care Code Est Pt Level 4 (30025) Diagnoses Essential hypertension I10 Proteinuria, unspecified type R80.9 Proteinuria type: unspecified CKD (chronic kidney disease) stage 3, GFR 30-59 ml/min N18.30 Chronic gout of right foot, unspecified cause M1A.0710 Gout site: foot Gout etiology: unspecified cause Chronicity: chronic Laterality: right
== END 2023-08-25 11:07 | disposition home or self-care (01) ==
PROVIDERS: PCP Internal Medicine; Visit Provider Internal Medicine Hypertension Specialist
DX: I10 Essential (primary) hypertension (principal); R80.9 Proteinuria, unspecified; N18.30 Chronic kidney disease, stage 3 unspecified; M1A.0710 Idiopathic chronic gout, right ankle and foot, without tophus (tophi)
CPT/HCPCS: 99214

== ENCOUNTER → 2023-08-25 10:49 | Outpatient (BNVA) | payer OTHER, SELFPAY | PROVIDERS: PCP Internal Medicine; Visit Provider Internal Medicine Hypertension Specialist ==

== ENCOUNTER 2023-08-25 11:11 | Outpatient (REF) | payer OTHER, SELFPAY ==
[2023-08-25 12:48] LABS: MANUAL DIFF FLAG NO
[2023-08-25 12:51] LABS: Basophils Absolute Auto 0.1 X10*3/uL (0.0-0.2); Eosinophils Absolute Auto 0.2 X10*3/uL (0.0-0.4); Eosinophils Percent Auto 2.7 % (0-4); Hematocrit 45.5 % (42.0-52.0); Hemoglobin 15.2 g/dl (14.0-18.0); Imm Gran Abs Auto 0.02 X10*3/uL (0.00-0.03); Imm Gran Pct Auto 0.3 % (0.0-0.4); Lymphocytes Percent Auto 26.2 % (20-40); Mean Corpuscular HGB Conc 33.4 g/dl (31.0-36.0); Mean Corpuscular Hemoglobin 27.1 pg (27.0-33.0); Mean Corpuscular Volume 81.3 fL (80.0-98.0); Mean Platelet Volume 10.3 fL (9.4-12.4); Monocytes Absolute Auto 0.7 X10*3/uL (0.1-1.2); Monocytes Percent Auto 8.8 % (2-11); Neutrophils Absolute Auto 4.7 x10*3/uL (2.0-8.3); Platelet Count 267 X10*3/uL (160-400); Red Cell Distribution Width 14.2 % (11.0-16.0); White Blood Count 7.7 X10*3/uL (4.8-10.8)
[2023-08-25 13:36] LABS: Anion Gap 16 (12-20); Blood Urea Nitrogen 17 mg/dL (9-16); Carbon Dioxide 26 mmol/L (22-29); Chloride 103 mmol/L (96-108); Estimated Glomerular Filt Rate 59; Glucose Random 76 mg/dL (60-115); Potassium 4.2 mmol/L (3.3-5.1); Sodium 141 mmol/L (135-145); Uric Acid 8.1 mg/dL (3.4-7.0)
[2023-08-25 13:37] LABS: Total Protein Urine Random 22 mg/dL (<12)
[2023-08-25 14:06] LABS: Appearance Urine Clear; Color Urine Yellow; Glucose Urine UA Negative (Negative); Leukocyte Esterase Urine Negative (Negative); Nitrite Urine Negative (Negative); Specific Gravity - Urine 1.015 (1.005-1.025); Urine Blood Negative (Negative); Urine Ketones Negative (Negative); Urine Protein Trace mg/dL (Neg-Trace)
== END 2023-08-25 11:12 | disposition home or self-care (01) ==
LOC: HO.10HDL 11:11
PROVIDERS: Visit Provider Internal Medicine Hypertension Specialist
DX: I10 Essential (primary) hypertension (principal); N18.30 Chronic kidney disease, stage 3 unspecified; N05.9 Unspecified nephritic syndrome with unspecified morphologic changes
CPT/HCPCS: 36415; 80048; 81003; 82570; 84156; 84550; 85025

== ENCOUNTER 2023-09-21 08:07 | Outpatient (AMB) | payer OTHER, SELFPAY ==
--- NOTE | 2023-09-21 08:10 | MHC.PC.OV ---
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 He has been at work cleaning with a new spool cleaner that he has not use in the past. No one in the household has the same thing. Blood pressure stable. Proteinuria is follow by Nephrology and has been well control with JOSEPHINE inhibitor. Has not had a gout attack in over a month. [facility] Medical History (Updated 09/21/23 @ 09:11 by Madeleine Sage MD) CKD (chronic kidney disease) stage 3, GFR 30-59 ml/min Physical exam Obesity (BMI 30-39.9) Lumbar pain Vasectomy evaluation Gout Proteinuria Essential hypertension Surgical History History of colonoscopy History of vasectomy Family History Father Diabetes Hypertension CVD (cardiovascular disease) Mother Hypertension Maternal Grandfather Cancer Family/Other Substance use disorder Mental health disorder Social History Housing: Apartment Alcohol intake: current Alcohol intake frequency: a few times a week Alcohol type: beer Patient Tobacco Use Status: Former Tobacco user Tobacco use type: Cigarette e-Cigarette/Vaping Use: Never Used Second Hand Smoke Exposure: No service: No Current occupational status: employed Current occupational exposures/hazards: No Cognitive needs: No Hearing needs: No Vision needs: Yes Questionnaire Thrive Questionnaire Date Thrive assessed: 07/18/23 CARLOS-7 AMB Questionnaire CARLOS-7 Date CARLOS - 7 assessed: 07/18/23 Source: Developed by Drs. Alexandre Salgado, Shirley Her, Peterson Collins and colleagues, with an educational ariel from [employer]. Review of Systems Const All systems reviewed & are unremarkable except as noted in HPI and below Card Denies chest pain at rest, Denies chest pain with activity, Denies edema, Denies irregular heart rhythm, Denies claudication, Denies dyspnea, Denies dyspnea on exertion, Denies orthopnea, Denies paroxysmal nocturnal dyspnea and Denies slow heart rate Resp Denies cough, Denies dyspnea and Denies dyspnea on exertion Skin/Breast Reports pruritus Aller/Immun Reports urticaria Physical exam (Primary Care) Vital Signs: Last Vital Signs BP 118/80 09/21/23 08:11 BMI result Body Mass Index 30.7 BMI Assessment/Plan discussion: High BMI High, discussed plan: lifestyle, weight reduction, dietary and physical activity Tobacco/Smoking Status: Tobacco use Status Tobacco use date assessed 07/18/23 09/21/23 08:14 Patient Tobacco Use Status Former Tobacco user 09/21/23 08:14 Tobacco use type Cigarette 09/21/23 08:14 e-Cigarette/Vaping Use Never Used 09/21/23 08:14 Thrive Assessment: Date of Thrive Assessment Date Thrive assessed 07/18/23 09/21/23 08:14 Resp Effort & Inspection: normal respiratory effort Auscultation: clear to auscultation bilaterally Cardio Jugular venous distension: no JVD Rate: regular rate Rhythm: regular rhythm Heart sounds: S1 normal heart sound present and S2 normal heart sound present Skin Rashes: rashes noted hives diffuse full body Extrem General: Yes full ROM Assessment and Plan Assessment & Plan (1) Hives: Code(s): L50.9 - Urticaria, unspecified Plan: Start prednisone pack. Start antihistamines. Discontinue the use of a new spool cleaner. (2) Gout: Code(s): M10.9 - Gout, unspecified Qualifiers: Gout site: foot Gout etiology: unspecified cause Chronicity: chronic Laterality: right Qualified Code(s): M1A.0710 - Idiopathic chronic gout, right ankle and foot, without tophus (tophi) Plan: Continue allopurinol. Follow a low purine diet. (3) Proteinuria: Code(s): R80.9 - Proteinuria, unspecified Qualifiers: Proteinuria type: unspecified Qualified Code(s): R80.9 - Proteinuria, unspecified Plan: Continue lisinopril. Follow-up with nephrology. (4) Essential hypertension: Code(s): I10 - Essential (primary) hypertension Plan: Continue lisinopril. Blood pressure goal is equal or less than 130/80. Medications: New prednisone Take 4 tabs for 2 days, then 3 tabs for 2 days, then 2 tabs for 2 days, then 1 tab for 2 days 10 mg PO DIRECTED 8 days 20 tabs 0RF cetirizine (All Day Allergy (cetirizine)) 10 mg PO DAILY 90 days PRN 90 tabs 0RF allergy symptoms Coding Level of Care Code Est Pt Level 4 (81282) Complex EM visit Add On G2211 Diagnoses Hives L50.9 Chronic gout of right foot, unspecified cause M1A.0710 Gout site: foot Gout etiology: unspecified cause Chronicity: chronic Laterality: right Proteinuria, unspecified type R80.9 Proteinuria type: unspecified Essential hypertension I10 Time Spent (min) 22
[2023-09-21 08:11] VITALS: BP 118/80; BMI 30.7
== END 2023-09-21 08:41 | disposition home or self-care (01) ==
PROVIDERS: PCP Internal Medicine; Visit Provider Internal Medicine
DX: L50.9 Urticaria, unspecified (principal); M1A.0710 Idiopathic chronic gout, right ankle and foot, without tophus (tophi); R80.9 Proteinuria, unspecified; I10 Essential (primary) hypertension
CPT/HCPCS: 99214; G2211

== ENCOUNTER 2024-02-21 10:09 | Outpatient (AMB) | payer OTHER, SELFPAY ==
[2024-02-21 10:13] VITALS: BP 96/74; PULSE 82; O2SAT 97; BMI 31.3
--- NOTE | 2024-02-21 10:13 | HO.NEPHOV ---
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 About a year ago he moved from [place]. He was told that he had proteinuria. However 20 fluid collection showed protein excretion of 4 mg with a urine protein creatinine ratio for test 84. Serum creatinine has been stable between 1.0-1.2 mg/dL. Ms. No other history of kidney disease. This is a family history of end stage renal disease father and his uncle were on dialysis. But they had diabetes for almost 20 years. History of gout. The creatinine clearance was 100 mL/minute with serum creatinine 1.2 based on 20 fluid collection back in January 2022. Today has no new complaints Had 1 episode gout in May 2023 [facility] Medical History CKD (chronic kidney disease) stage 3, GFR 30-59 ml/min Physical exam Obesity (BMI 30-39.9) Lumbar pain Vasectomy evaluation Gout Proteinuria Essential hypertension Surgical History History of colonoscopy History of vasectomy Family History Father Diabetes Hypertension CVD (cardiovascular disease) Mother Hypertension Maternal Grandfather Cancer Family/Other Substance use disorder Mental health disorder Social History Housing: Apartment Alcohol intake: current Alcohol intake frequency: a few times a week Alcohol type: beer Patient Tobacco Use Status: Former Tobacco user Tobacco use type: Cigarette e-Cigarette/Vaping Use: Never Used Second Hand Smoke Exposure: No service: No Current occupational status: employed Current occupational exposures/hazards: No Cognitive needs: No Hearing needs: No Vision needs: Yes Physical Exam Vital Signs: Last Vital Signs Pulse 82 02/21/24 10:13 BP 96/74 02/21/24 10:13 Pulse Ox 97 02/21/24 10:13 Oxygen Delivery Method Room Air 02/21/24 10:13 BMI result Body Mass Index 31.3 Results Reviewed Nephrology Results: Hgb 15.2 g/dl (14.0-18.0) 08/25/23 WBC 7.7 X10*3/uL (4.8-10.8) 08/25/23 Plt Count 267 X10*3/uL (160-400) 08/25/23 Sodium 141 mmol/L (135-145) 08/25/23 Potassium 4.2 mmol/L (3.3-5.1) 08/25/23 Chloride 103 mmol/L (96-108) 08/25/23 Carbon Dioxide 26 mmol/L (22-29) 08/25/23 BUN 17 mg/dL (9-16) H 08/25/23 Creatinine 1.30 mg/dL (0.5-1.4) 08/25/23 Calcium 10.0 mg/dL (8.4-10.2) 08/25/23 Urine Protein Trace mg/dL (Neg-Trace) 08/25/23 Urine Creatinine 129.30 mg/dL 08/25/23 Protein/Creatinin Ratio 0.15 (<0.2) 08/03/22 Assessment & Plan Assessment & Plan (1) Essential hypertension: Code(s): I10 - Essential (primary) hypertension Category: Medical Plan: Blood pressure is rather LOW Will decrease Lisinopril to 5 mg dialy fmo 10 mg Stay on ow-sodium diet. (2) Proteinuria: Code(s): R80.9 - Proteinuria, unspecified Category: Medical Qualifiers: Proteinuria type: unspecified Qualified Code(s): R80.9 - Proteinuria, unspecified Plan: Minimal proteinuria. Continue lisinopril for renal protection ,monitor urine proteinexcretion (3) CKD (chronic kidney disease) stage 3, GFR 30-59 ml/min: Code(s): N18.30 - Chronic kidney disease, stage 3 unspecified Category: Medical Plan: Mild CKD in a setting of hypertension however has been a recent bump in serum creatinine Most likely due to ACEi decreased Lisinopril to 5 mg ( 02/21/24) I will recheck serum creatinine . (4) Gout: Code(s): M10.9 - Gout, unspecified Category: Medical Qualifiers: Chronicity: chronic Gout etiology: unspecified cause Gout site: foot Laterality: right Qualified Code(s): M1A.0710 - Idiopathic chronic gout, right ankle and foot, without tophus (tophi) Plan: History of gout. He is on colchicine. No further episodes of gout. Will recheck the serum uric acid. He should stay on low purine diet as well Orders: Orders Blood Urea Nitrogen Today I10 - Essential (primary) hypertension, N18.4 - Chronic kidney disease, stage 4 (severe) Creatinine Today I10 - Essential (primary) hypertension Uric Acid Today M1A.0710 - Idiopathic chronic gout, right ankle and foot, without tophus (tophi) Creatinine Urine Today I10 - Essential (primary) hypertension, R80.9 - Proteinuria, unspecified Total Protein Urine Random Today I10 - Essential (primary) hypertension, R80.9 - Proteinuria, unspecified Medications: Changed From lisinopril 10 mg PO DAILY 90 days 90 tabs 3RF I10 - Essential (primary) hypertension To lisinopril 5 mg PO DAILY 90 days 90 tabs 3RF I10 - Essential (primary) hypertension Coding Level of Care Code Est Pt Level 4 (64867) Diagnoses Essential hypertension I10 Proteinuria, unspecified type R80.9 Proteinuria type: unspecified CKD (chronic kidney disease) stage 3, GFR 30-59 ml/min N18.30 Chronic gout of right foot, unspecified cause M1A.0710 Chronicity: chronic Gout etiology: unspecified cause Gout site: foot Laterality: right
== END 2024-02-21 10:30 | disposition home or self-care (01) ==
PROVIDERS: PCP Internal Medicine; Visit Provider Internal Medicine Hypertension Specialist
DX: I12.9 Hypertensive chronic kidney disease with stage 1 through stage 4 chronic kidney disease, or unspecified chronic kidney disease (principal); N18.30 Chronic kidney disease, stage 3 unspecified; R80.9 Proteinuria, unspecified; M1A.0710 Idiopathic chronic gout, right ankle and foot, without tophus (tophi)
CPT/HCPCS: 99214

== ENCOUNTER 2024-02-21 10:34 | Outpatient (REF) | payer OTHER, SELFPAY ==
[2024-02-21 14:26] LABS: Blood Urea Nitrogen 19 mg/dL (9-16); Estimated Glomerular Filt Rate > 60; Uric Acid 6.6 mg/dL (3.4-7.0)
[2024-02-21 14:49] LABS: Creatinine Urine 122.97 mg/dL; Total Protein Urine Random 23 mg/dL (<12)
== END 2024-02-21 10:35 | disposition home or self-care (01) ==
LOC: HO.10HDL 10:34
PROVIDERS: Visit Provider Internal Medicine Hypertension Specialist
DX: I12.9 Hypertensive chronic kidney disease with stage 1 through stage 4 chronic kidney disease, or unspecified chronic kidney disease (principal); N18.4 Chronic kidney disease, stage 4 (severe); M1A.0710 Idiopathic chronic gout, right ankle and foot, without tophus (tophi); R80.9 Proteinuria, unspecified
CPT/HCPCS: 36415; 82565; 82570; 84156; 84520; 84550

== ENCOUNTER 2024-07-23 15:50 | Outpatient (AMB) | payer OTHER, SELFPAY ==
--- NOTE | 2024-07-23 15:51 | MHC.PC.OV ---
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 Accompanied by: Self / Same As Patient Allergies ibuprofen Allergy (Intermediate, Verified 07/23/24 16:04) contraindicated Medication List - Last Reconciled 07/23/24 by Madeleine Sage MD allopurinol 300 mg PO DAILY 90 days lisinopril 5 mg PO DAILY 90 days Tobacco use date assessed: 07/23/24 Dental Screening Dental Screen Date: 07/23/24 Did you have a dental visit in the last 12 months?: No Did you have a dental problem in the last 6 months where you did not have access to dental care?: No Was dental information given to patient?: Patient has dentist HPI HPI Comments History of Present Illness Details The patient is a 48-year-old male presenting for his annual physical examination. The patient has a history of Chronic Kidney Disease, Stage 3, and hypertension for which he is on 5 mg of Lisinopril. His blood pressure readings have been stable. He was found to have colon polyps during his colonoscopy last year, leading to a recommendation for follow-up in 10 years rather than 5, given no further concerning findings. The patient notes a right ear lesion that occasionally causes pain, especially aggravated by cold weather. He denies any anxiety or depressive symptoms but acknowledges previous episodes of anxiety. His medication list includes allopurinol 300 mg. The patient reports an allergy to ibuprofen, which was advised against due to renal concerns. He has a family history notable for diabetes, hypertension, and heart disease?his father is , presumably related to these conditions, and his mother has hypertension. - Tetanus vaccination administered in 2016, next due in 2026. - Colonoscopy performed in July of last year; recommended follow-up is in 10 years unless additional concerns arise. - Laboratory tests planned for cholesterol, blood sugar, renal, and liver function. - Patient is advised against smoking and moderates alcohol consumption to weekends. [facility] Medical History CKD (chronic kidney disease) stage 3, GFR 30-59 ml/min Physical exam Obesity (BMI 30-39.9) Lumbar pain Vasectomy evaluation Gout Proteinuria Essential hypertension Surgical History History of colonoscopy History of vasectomy Family History Father Diabetes Hypertension CVD (cardiovascular disease) Mother Hypertension Maternal Grandfather Cancer Family/Other Substance use disorder Mental health disorder Social History Housing: Apartment Alcohol intake: current Alcohol intake frequency: a few times a week Alcohol type: beer Patient Tobacco Use Status: Former Tobacco user Tobacco use type: Cigarette e-Cigarette/Vaping Use: Never Used Second Hand Smoke Exposure: No service: No Current occupational status: employed Current occupational exposures/hazards: No Cognitive needs: No Hearing needs: No Vision needs: Yes Questionnaire PHQ-9 Over the last 2 weeks, how often have you been bothered by any of the following problems? 1. Little interest or pleasure in doing things: not at all 2. Feeling down, depressed, or hopeless: not at all 3. Trouble falling or staying asleep, or sleeping too much: not at all 4. Feeling tired or having little energy: not at all 5. Poor appetite or overeating: not at all 6. Feeling bad about yourself - or that you are a failure or have let yourself or your family down: not at all 7. Trouble concentrating on things, such as reading the newspaper or watching television: not at all 8. Moving or speaking so slowly that other people could have noticed. Or the opposite - being so fidgety or restless that you have been moving around a lot more than usual: not at all 9. Thoughts that you would be better off or of hurting yourself in some way: not at all Total score: 0 Depression Screening Interpretation: Negative Depression Screening Done: Yes 59290 - PHQ-9 Billing: Yes Source: Developed by Drs. Alexandre Salgado, Shirley Her, Peterson Collins and colleagues, with an educational ariel from [employer]. Thrive Questionnaire Date Thrive assessed: 07/23/24 I am a: Patient What is your living situation today?: I have a steady place to live Within the past 12 months, did the food you bought not last and you didn't have the money to get more?: Never true Within the past 12 months, did you worry whether your food would run out before you got money to buy more?: Never true Do you have trouble paying for medicines?: No Do you have trouble getting transportation to medical appointments?: No Do you have trouble paying your heating and electricity bill?: No Do you have trouble taking care of your child, family member or friend?: No Do you have trouble with day-to-day activities such as bathing, preparing meals, shopping, managing finances, etc.?: No Are you currently unemployed and looking for a job?: No Are you interested in more education?: Yes Please select the resources that you would like help with: Education Currently or been in a relationship where the following occur: No concerns reported THRIVE Score: 0 AUDIT C Alcohol Use Questionnaire (AUDIT-C) 1. How often do you have a drink containing alcohol?: 2-4 times a month 2. How many drinks containing alcohol do you have on a typical day when you are drinking?: 5 or 6 3. How often do you have six or more drinks on one occasion?: Never Total Score: 4 CARLOS-7 AMB Questionnaire CARLOS-7 Date CARLOS - 7 assessed: 07/23/24 Feeling nervous, anxious, or on edge: 0 = Not at all Not being able to stop or control worryin = Not at all Worrying too much about different things: 0 = Not at all Trouble relaxin = Not at all Being so restless that it is hard to sit still: 0 = Not at all Becoming easily annoyed or irritable: 0 = Not at all Feeling afraid as if something awful might happen: 0 = Not at all Total CARLOS-7 score (0-4 normal; 5-9 mild; 10-14 moderate; 15-21 severe): 0 Source: Developed by Drs. Alexandre Salgado, Shirley Her, Peterson Collins and colleagues, with an educational ariel from [employer]. CARLOS-7 Assessment Billing CARLOS-7 Assessment Tool: CARLOS-7 Assessment 46862 Review of Systems Const All systems reviewed & are unremarkable except as noted in HPI and below Card Denies chest pain at rest, Denies chest pain with activity, Denies edema, Denies irregular heart rhythm, Denies claudication, Denies dyspnea, Denies dyspnea on exertion, Denies orthopnea, Denies paroxysmal nocturnal dyspnea and Denies slow heart rate Resp Denies cough, Denies dyspnea and Denies dyspnea on exertion GI Denies abdominal pain, Denies change in bowel habits, Denies excessive flatus, Denies nausea and Denies vomiting Denies urinary hesitancy, Denies urinary incontinence and Denies urinary urgency Musc Denies abnormal gait, Denies atrophy, Denies deformity and Denies limited range of motion Skin/Breast Denies bleeding lesions, Denies changing lesions and Denies rash Neuro Denies abnormal gait and Denies lack of coordination Physical exam (Primary Care) Vital Signs: Last Vital Signs BP 120/78 07/23/24 15:52 BMI result Body Mass Index 30.9 BMI Assessment/Plan discussion: High BMI High, discussed plan: lifestyle, weight reduction, dietary and physical activity Tobacco/Smoking Status: Tobacco use Status Tobacco use date assessed 07/23/24 07/23/24 15:57 Patient Tobacco Use Status Former Tobacco user 07/23/24 15:57 Tobacco use type Cigarette 07/23/24 15:57 e-Cigarette/Vaping Use Never Used 07/23/24 15:57 PHQ-9: PHQ-9 Score PHQ-9: Total score 0 07/23/24 16:07 Depression Screening Interpretation: Negative Thrive Assessment: Date of Thrive Assessment Date Thrive assessed 07/23/24 07/23/24 15:57 Currently or been in a relationship where the following occur: No concerns reported [facility] Head: Yes normal to inspection, Yes normocephalic and Yes atraumatic Ears: external ears normal Eyes General: appearance normal, both eyes and all related structures Eyelids: Yes eyelids normal Conjunctivae: conjunctivae normal Neck Neck: Yes normal visual inspection and Yes supple Resp Effort & Inspection: normal respiratory effort Auscultation: clear to auscultation bilaterally Cardio Jugular venous distension: no JVD Rate: regular rate Rhythm: regular rhythm Heart sounds: S1 normal heart sound present and S2 normal heart sound present GI Inspection: Yes normal to inspection Palpation (GI): Soft to palpation and nontender Auscultation: normal bowel sounds Skin General skin exam: no rashes or lesions noted Neuro General: no focal motor deficits Extrem General: Yes full ROM Psych Appearance: grossly normal Coding Level of Care Code Est Pt Level 3 (27260) Est Pt Prev Care 40-64y(11709) Diagnoses Physical exam Z00.00 Skin lesion L98.9 Additional Codes CARLOS-7 Assessment Billing - CARLOS-7 Assessment Tool: CARLOS-7 Assessment 64918 ([id number]) PHQ-9 - 82297 - PHQ-9 Billing: Yes ([id number]) Time Spent (min) 31 Assessment & Plan Assessment & Plan (1) Physical exam: Code(s): Z00.00 - Encounter for general adult medical examination without abnormal findings Category: Medical (2) Skin lesion: Code(s): L98.9 - Disorder of the skin and subcutaneous tissue, unspecified Category: Medical Plan We will proceed with laboratory assessments for cholesterol, blood glucose, renal, and liver functions to ensure comprehensive monitoring and control of the patient's chronic conditions. Hypertension management with Lisinopril remains stable and will be continued. Chronic Kidney Disease, Stage 3, requires diligent monitoring, with follow-up scheduled with nephrology. Dermatologic referral for the right ear lesion will determine the need for further intervention. The patient's lifestyle, including alcohol intake and anxiety management, has shown improvement and should be maintained. Advised against NSAID use due to renal impairment risk. Patient was informed and verbally consented to the use of an ambient scribe for clinic note documentation during this visit. During the visit, I discussed the management plan, focusing on the chronic conditions and preventive care. Emphasized the importance of follow-up with nephrology for Chronic Kidney Disease and adherence to antihypertensive therapy with Lisinopril. We reviewed the benign appearance of the ear lesion, with a referral to dermatology for confirmation. I educated the patient on the necessity of regular screenings and lab tests, particularly given his family history. Smoking cessation efforts were acknowledged, and moderation of alcohol intake was reinforced. We agreed on the outlined plan and the significance of avoiding NSAIDs due to their contraindication in renal impairment. Consent was obtained for all aspects of the management plan. Orders: Orders Uric Acid Today M1A.0710 - Idiopathic chronic gout, right ankle and foot, without tophus (tophi) Lipid Panel Today Z00.00 - Encounter for general adult medical examination without abnormal findings Comprehensive Krypton. Panel Fast Today Z00.00 - Encounter for general adult medical examination without abnormal findings Referrals General Surgery Referral L98.9 - Disorder of the skin and subcutaneous tissue, unspecified Patient Instructions: - Complete scheduled laboratory tests within the next week. - Avoid NSAIDs like ibuprofen. - Continue taking Lisinopril daily as prescribed. - Monitor blood pressure at home regularly. - Attend dermatology appointment for ear evaluation. - Follow up with nephrology annually. - Maintain a balanced diet and moderate alcohol consumption. - Report any new symptoms or changes in existing conditions promptly.
[2024-07-23 15:52] VITALS: BP 120/78; BMI 30.9
--- OUTSIDE RECORDS SUMMARY | 2024-07-23 18:09 | XMS_ITS | Clinical Summary ---
Author Organization [facility] Address [address] [facility] [address] [place] [address] Phone Care Team Providers Care Front End Developer Name Role Phone Madeleine Polanco MD Primary Care Provider [phone] Allergies Active Allergy Reactions Criticality Noted Date Comments Ibuprofen Other (see comments) 07/11/2020 Medications allopurinol (ZYLOPRIM) 100 MG tablet Take 300 mg by mouth 1 (one) time each day 05/23/2020 Active colchicine 0.6 MG tablet Take 1 tablet by mouth 1 (one) time each day if needed Active lisinopril 10 MG tablet Take 0.5 tablets (5 mg total) by mouth 1 (one) time each day 08/09/2022 Active Active Problems Problem Noted Date Diagnosed Date Chronic kidney disease stage 2 07/11/2020 Proteinuria 07/11/2020 Serum creatinine above reference range Family History Medical History Relation Comments Diabetes Father Heart disease Father [place] Hypertension Father Kidney disease Father Hypertension Mother Relation Status Comments Father Mother Unknown Social History Tobacco Use Types Packs/Day Years Used Date Smoking Tobacco: Former Smokeless Tobacco: Never Tobacco Cessation:Counseling Given: Not Answered Comments:Smoking History Info:Every day Alcohol Use Standard Drinks/Week Comments Yes 0 (1 standard drink = 0.6 oz pure alcohol) Alcoholic Drinks/day: 3 or more drinks per day Sex and Gender Information Value Date Recorded Sex Assigned at Not on file Legal Sex Male 4:50 PM EST Gender Identity Not on file Sexual Orientation Not on file Last Filed Vital Signs Vital Sign Reading Time Taken Comments Blood Pressure 90/60 08/09/2022 4:18 PM EDT Pulse 87 08/09/2022 4:18 PM EDT Temperature - - Respiratory Rate - - Oxygen Saturation 97% 08/09/2022 4:18 PM EDT Inhaled Oxygen Concentration - - Weight 94.2 kg (207 lb 9.6 oz) 08/09/2022 4:18 P M EDT Height 172.7 cm (5' 8 ) 08/09/2022 4:18 PM EDT Body Mass Index 31.57 08/09/2022 4:18 PM EDT Plan of Treatment Health Maintenance Due Date Last Done Comments Hepatitis B Vaccine (1 of 3 - 19+ 3-dose series) 12/05 Pneumococcal Vaccine: Peds ( 0 to 5 Years) and At-Risk Patients (6 to 49 Years) (1 of 2 - PCV) 12/06/1995 Influenza Vaccine (Season Ended) 2024 Insurance [facility] Health Care Teams Front End Developer Relationship Specialty Start Date End Date Madeleine Polanco MD [address] [place] [address] PCP - General 04/21/20
--- OUTSIDE RECORDS SUMMARY | 2024-07-23 18:09 | XMS_ITS | Clinical Summary ---
Author Organization [facility] Address [address] [place] [address] [address] [place] [address] Care Team Providers Care Mechanical Facilities Technician Name Role Phone Unavailable Primary Care Provider Unavailabl e Allergies No known active allergies Medications allopurinol (Zyloprim) 300 MG tablet Take 300 mg by mouth in the morning. 04/14/2022 Active lisinopril 10 MG tablet Take 5 mg by mouth. 04/05/2020 Active Active Problems No known active problems Family History Medical History Relation Name Comments Diabetes Father Hypertension Father Kidney disease Father Diabetes Father's Brother Hypertension Father's Brother Kidney disease Father's Brother Prostate cancer Maternal Grandfather Hypertension Mother Osteoarthritis Mother Relation Name Status Comments Father Father's Brother Maternal Grandfather Mother Social History Tobacco Use Types Packs/Day Years Used Date Smoking Tobacco: Former Cigarettes Tobacco Cessation:Counseling Given: Not Answered Sex and Gender Information Value Date Recorded Sex Assigned at Male 02/08/2022 10:32 AM EDT Legal Sex Male 10:32 AM EDT Gender Identity Choose not to disclose 2:12 PM EST Sexual Orientation Choose not to disclose 2022 2:12 PM EST Plan of Treatment Upcoming Encounters Date Type Department Care Team (Late st Contact Info) Description 10/03/2024 2:30 PM EDT Office Visit [facility] [address] [place], [place] [id number] HayderReynaldon, OD [address] [place], [place] [id number] Health Maintenance Due Date Last Done Comments CT Colonography 1976 Colonoscopy 1976 Colorectal Cancer Screening 1976 Depression Screening 1976 FIT DNA/Cologuard 1976 FIT 1976 FOBT 1976 HIV Screening 1976 Lipid Panel 1976 SDOH Screening 1976 Sigmoidoscopy 1976 Alcohol/Substance Use Screening 1988 Family Planning (PISQ) 12/06/1991 Hepatitis C Screening 1994 Hepatitis B Vaccines (1 of 3 - 19+ 3-dose series) 12/06/1995 Tobacco Screening 06/25/2023 06/24/2022 COVID-19 Vaccine (4 - 2023-2 5 season) 2023 04/28/2021, 09/06/2020, 08/09/2020 Influenza Vaccine (#1) 2023 , 05/19/2018, 02/17/2017 Zoster Vaccines (1 of 2) 2026 DTaP/Tdap/Td Vaccines (2 - T d or Tdap) 02/17/2027 02/17/2017 RSV Patients and Patients Aged 60 years or older (1 - 1-dose 75+ series) 12/06/2051 HIB Vaccines Aged Out No longer eligi ble based on patient's age to complete this topic HPV Vaccines Aged Out No longer eligi ble based on patient's age to complete this topic Hepatitis A Vaccines Aged Out No long er eligible based on patient's age to complete this topic IPV Vaccines Aged Out No longer eligi ble based on patient's age to complete this topic Meningococcal Vaccine Aged Out No ronan jennifer eligible based on patient's age to complete this topic Pneumococcal Vaccine: Pediatrics (0 to 5 Years) and At-Risk Patients (6 to 49) Years) Aged Out No longer eligible b ased on patient's age to complete this topic RSV under 20 months Aged Out No longe r eligible based on patient's age to complete this topic Rotavirus Vaccines Aged Out No longer eligible based on patient's age to complete this topic Insurance [facility] [address] , [address] [place] [address]
== END 2024-07-23 16:14 | disposition home or self-care (01) ==
LOC: HO.HMCH 15:50
PROVIDERS: PCP Internal Medicine; Visit Provider Internal Medicine
DX: Z00.00 Encounter for general adult medical examination without abnormal findings (principal); L98.9 Disorder of the skin and subcutaneous tissue, unspecified

== ENCOUNTER → 2024-07-23 15:50 | Outpatient (BNVA) | payer OTHER, SELFPAY | PROVIDERS: PCP Internal Medicine; Visit Provider Internal Medicine | DX: Z00.00 Encounter for general adult medical examination without abnormal findings (principal); L98.9 Disorder of the skin and subcutaneous tissue, unspecified; I12.9 Hypertensive chronic kidney disease with stage 1 through stage 4 chronic kidney disease, or unspecified chronic kidney disease; N18.30 Chronic kidney disease, stage 3 unspecified; Z79.899 Other long term (current) drug therapy | CPT/HCPCS: 96127 ==

== ENCOUNTER 2024-08-14 09:39 | Outpatient (AMB) | payer OTHER, SELFPAY ==
[2024-08-14 09:45] VITALS: BP 110/68; PULSE 90; O2SAT 96; BMI 31.2
--- NOTE | 2024-08-14 09:45 | HO.NEPHOV_ITS ---
Vital Signs 08/14/24 09:45 Height 5 ft 8 in Weight 205 lb BMI 31.2 BP 110/68 Blood Pressure Location Lt brachial Position Sitting Pulse 90 Pulse Source Pulse Oximeter Pulse Oximetry (%) 96 Oxygen Delivery Method Room Air Intake Visit Reasons: CKD/ Conf Fisher Sponge Hooking Required: No Fisher Sponge Hooking Services: [employer] Offered & Declined Accompanied by: Spouse Allergies ibuprofen Allergy (Intermediate, Verified 08/14/24 09:46) contraindicated Medication List - Last Reconciled 08/14/24 by Anthony Kendrick MD allopurinol 300 mg PO DAILY 90 days lisinopril 5 mg PO DAILY 90 days HPI Comments Details: Middle-aged man with a history of proteinuria and hypertension. About a year ago he moved from [place]. He was told that he had proteinuria. However 20 fluid collection showed protein excretion of 4 mg with a urine protein creatinine ratio for test 84. Serum creatinine has been stable between 1.0-1.2 mg/dL. . No other history of kidney disease. This is a family history of end stage renal disease father and his uncle were on dialysis. But they had diabetes for almost 20 years. History of gout. The creatinine clearance was 100 mL/minute with serum creatinine 1.2 based on 20 fluid collection back in January 2022. Today has no new complaints Had 1 episode gout in May 2023 08/14/24 Doing well Drinks less beer No recent gout episodes [facility] Medical History CKD (chronic kidney disease) stage 3, GFR 30-59 ml/min Physical exam Obesity (BMI 30-39.9) Lumbar pain Vasectomy evaluation Gout Proteinuria Essential hypertension Surgical History History of colonoscopy History of vasectomy Family History Father Diabetes Hypertension CVD (cardiovascular disease) Mother Hypertension Maternal Grandfather Cancer Family/Other Substance use disorder Mental health disorder Social History Housing: Apartment Alcohol intake: current Alcohol intake frequency: a few times a week Alcohol type: beer Patient Tobacco Use Status: Former Tobacco user Tobacco use type: Cigarette e-Cigarette/Vaping Use: Never Used Second Hand Smoke Exposure: No service: No Current occupational status: employed Current occupational exposures/hazards: No Cognitive needs: No Hearing needs: No Vision needs: Yes Physical Exam Vital Signs: Last Vital Signs Pulse 90 08/14/24 09:45 BP 110/68 08/14/24 09:45 Pulse Ox 96 08/14/24 09:45 Oxygen Delivery Method Room Air 08/14/24 09:45 BMI result Body Mass Index 31.2 Const General: comfortable Nutritional Appearance: well nourished Orientation/consciousness: patient oriented x3 HEENT Head: No normal to inspection Mouth: moist mucous membranes Neck Neck: Yes supple and Yes no JVD Resp Auscultation: clear to auscultation bilaterally and no rales Cardio Jugular venous distension: no JVD Palpation: no palpable S3 and no palpable S4 Heart sounds: no rubs GI Palpation (GI): Soft to palpation and nontender Percussion: No Fluid wave present General: Yes no CVA tenderness Back/Spine/Pelvis Back: no CVA tenderness Skin General skin exam: no rashes or lesions noted Neuro General: patient oriented x3 Extrem General: Yes no pedal edema and No clubbing Results Reviewed Nephrology Results: Hgb 15.2 g/dl (14.0-18.0) 08/25/23 WBC 7.7 X10*3/uL (4.8-10.8) 08/25/23 Plt Count 267 X10*3/uL (160-400) 08/25/23 Sodium 141 mmol/L (135-145) 08/25/23 Potassium 4.2 mmol/L (3.3-5.1) 08/25/23 Chloride 103 mmol/L (96-108) 08/25/23 Carbon Dioxide 26 mmol/L (22-29) 08/25/23 BUN 19 mg/dL (9-16) H 02/21/24 Creatinine 1.28 mg/dL (0.5-1.4) 02/21/24 Calcium 10.0 mg/dL (8.4-10.2) 08/25/23 Urine Protein Trace mg/dL (Neg-Trace) 08/25/23 Urine Creatinine 122.97 mg/dL 02/21/24 Assessment & Plan Assessment & Plan (1) Essential hypertension: Code(s): I10 - Essential (primary) hypertension Category: Medical Plan: Blood pressure is rather LOW Will decrease Lisinopril to 5 mg dialy fmo 10 mg Stay on ow-sodium diet. (2) Proteinuria: Code(s): R80.9 - Proteinuria, unspecified Category: Medical Qualifiers: Proteinuria type: unspecified Qualified Code(s): R80.9 - Proteinuria, unspecified Plan: Minimal proteinuria. Continue lisinopril for renal protection ,monitor urine proteinexcretion (3) CKD (chronic kidney disease) stage 3, GFR 30-59 ml/min: Code(s): N18.30 - Chronic kidney disease, stage 3 unspecified Category: Medical Plan: Mild CKD in a setting of hypertension however has been a recent bump in serum creatinine Most likely due to ACEi decreased Lisinopril to 5 mg ( 02/21/24) serum creatinine at 1.28 in Feb 2024 Shall recheck . (4) Gout: Code(s): M10.9 - Gout, unspecified Category: Medical Qualifiers: Chronicity: chronic Gout etiology: unspecified cause Gout site: foot Laterality: right Qualified Code(s): M1A.0710 - Idiopathic chronic gout, right ankle and foot, without tophus (tophi) Plan: History of gout. He is on colchicine. No further episodes of gout. Will recheck the serum uric acid. He should stay on low purine diet as well Orders: Orders Complete Blood Count no Diff Today I10 - Essential (primary) hypertension, R80.9 - Proteinuria, unspecified Comprehensive Met. Panel Today I10 - Essential (primary) hypertension, R80.9 - Proteinuria, unspecified Parathyroid Hormone Intact Today I10 - Essential (primary) hypertension, R80.9 - Proteinuria, unspecified Total Protein Urine Random Today I10 - Essential (primary) hypertension, R80.9 - Proteinuria, unspecified UA and rflx microscopic Today I10 - Essential (primary) hypertension, R80.9 - Proteinuria, unspecified Creatinine Urine Today I10 - Essential (primary) hypertension, R80.9 - Proteinuria, unspecified Uric Acid Today I10 - Essential (primary) hypertension, M1A.0710 - Idiopathic chronic gout, right ankle and foot, without tophus (tophi), R80.9 - Proteinuria, unspecified Coding Level of Care Code Est Pt Level 4 (44426) Diagnoses Essential hypertension I10 Proteinuria, unspecified type R80.9 Proteinuria type: unspecified CKD (chronic kidney disease) stage 3, GFR 30-59 ml/min N18.30 Chronic gout of right foot, unspecified cause M1A.0710 Chronicity: chronic Gout etiology: unspecified cause Gout site: foot Laterality: right
--- OUTSIDE RECORDS SUMMARY | 2024-08-14 10:40 | XMS_ITS | Clinical Summary ---
Author Organization [facility] Address [address] [facility] [address] [place] [address] Phone Care Team Providers Care Smash Fixer Name Role Phone Madeleine Polanco MD Primary Care Provider [phone] Allergies Active Allergy Reactions Criticality Noted Date [...] Relation Comments Diabetes Father Heart disease Father [place] Hypertension Father Kidney disease Father Hypertension Mother [...] 12/06/1995 Influenza Vaccine (Season Ended) 2024 Insurance [facility] Health Care Teams Smash Fixer Relationship Specialty Start Date End Date Madeleine Polanco MD [address] [place] [address] PCP - General 04/21/20
--- OUTSIDE RECORDS SUMMARY | 2024-08-14 10:40 | XMS_ITS | Clinical Summary ---
Author Organization [employer] Address [address] [place] [address] 7[address] [place] [address] Care Team Providers Care Garment Sewer Hand Name Role Phone Unavailable Primary Care Provider [...] Description 10/03/2024 2:30 PM EDT Office Visit [facility] [address] [place], [place] [id number] Khadra Singletary, OD [address] [place], [place] [id number] Health Maintenance Due Date Last Done Comments [...] patient's age to complete this topic Insurance [facility] , [address] [place] [address]
== END 2024-08-14 09:56 | disposition home or self-care (01) ==
LOC: HO.HKA 09:39
PROVIDERS: PCP Internal Medicine; Visit Provider Internal Medicine Hypertension Specialist
DX: I10 Essential (primary) hypertension (principal); R80.9 Proteinuria, unspecified; N18.30 Chronic kidney disease, stage 3 unspecified; M1A.0710 Idiopathic chronic gout, right ankle and foot, without tophus (tophi)
CPT/HCPCS: 99214

== ENCOUNTER 2024-10-08 10:46 | Outpatient (AMB) | payer OTHER, SELFPAY ==
[2024-10-08 11:08] VITALS: BP 145/83; PULSE 77; TEMP 36.6; O2SAT 98; BMI 30.8
--- NOTE | 2024-10-08 11:08 | MHC.OFFVIS ---
Vital Signs 10/08/24 11:08 Height 5 ft 8 in Weight 202 lb 13.204 oz BMI 30.8 BP 145/83 H Blood Pressure Location Rt brachial Position Sitting Pulse 77 Pulse Source Pulse Oximeter Temp 97.8 F Temp Source Temporal Artery Scan Pulse Oximetry (%) 98 Oxygen Delivery Method Room Air Intake Visit Reasons: lesion right ear Intake Note: Patient is seen in office for lesion of the right ear. Pt c/o:pain when he touches it. Pt denies any discharge from the lesion. Accompanied by: Spouse Allergies ibuprofen Allergy (Intermediate, Verified 10/08/24 11:11) contraindicated Medication List - Last Reconciled 10/08/24 by Michael Cochran MD allopurinol 300 mg PO DAILY 90 days lisinopril 5 mg PO DAILY 90 days HPI Comments Details: 48-year-old male patient presenting with a cyst of the right ear which has been present for approximately 2 years and is now causing increased pain. The pain seems to be worse with pressure or when the weather gets cold. He denies any bleeding or discharge from the site. He denies any previous surgery in this location. The patient is requesting excision of this lesion. [facility] Medical History CKD (chronic kidney disease) stage 3, GFR 30-59 ml/min Physical exam Obesity (BMI 30-39.9) Lumbar pain Vasectomy evaluation Gout Proteinuria Essential hypertension Surgical History History of colonoscopy History of vasectomy Family History Father Diabetes Hypertension CVD (cardiovascular disease) Mother Hypertension Maternal Grandfather Cancer Family/Other Substance use disorder Mental health disorder Social History Housing: Apartment Alcohol intake: current Alcohol intake frequency: a few times a week Alcohol type: beer Patient Tobacco Use Status: Former Tobacco user Tobacco use type: Cigarette e-Cigarette/Vaping Use: Never Used Second Hand Smoke Exposure: No service: No Current occupational status: employed Current occupational exposures/hazards: No Cognitive needs: No Hearing needs: No Vision needs: Yes Review of Systems Const All systems reviewed & are unremarkable except as noted in HPI and below Physical Exam Vital Signs: Last Vital Signs Temp 97.8 F 10/08/24 11:08 Pulse 77 10/08/24 11:08 BP 145/83 H 10/08/24 11:08 Pulse Ox 98 10/08/24 11:08 Oxygen Delivery Method Room Air 10/08/24 11:08 BMI result Body Mass Index 30.8 Const General: cooperative and no acute distress Nutritional Appearance: well nourished Orientation/consciousness: patient oriented x3 Limitations: no limitations HEENT Other: Lesion right ear measuring approximately 2-3 mm in diameter, with a pearly surface: Head: Yes normocephalic and Yes atraumatic Ears: hearing grossly normal bilaterally Outer ear/TM images:  1. 2-3 mm raised firm skin lesion on the upper surface of the right ear, no erythema, no discharge, possibly a small punctum noted in the central portion of the lesion. No evidence of infection at this time. Resp Effort & Inspection: normal respiratory effort, no audible wheezes, no cough and no respiratory distress Cardio Jugular venous distension: no JVD GI Inspection: Yes normal to inspection Skin Other: Warm, dry, no rash Neuro General: patient oriented x3 Extrem General: Yes no clubbing, cyanosis or edema Assessment & Plan Assessment & Plan (1) Ear lesion: Code(s): H93.90 - Unspecified disorder of ear, unspecified ear Category: Medical Plan 48-year-old male patient presenting with a skin lesion of the right ear is noted above. This is increasing in size and causing discomfort and the patient was requesting excision. On examination this lesion measures approximately 2-3 mm in diameter with no evidence of abscess appears more consistent with a skin neoplasm. I recommended excision of this lesion under local anesthesia as an office based procedure. After discussion of the procedure, risks, and alternatives, he consents to the surgery. Coding Level of Care Code New Pt Level 4 (44368) Diagnoses Ear lesion H93.90
== END 2024-10-08 11:24 | disposition home or self-care (01) ==
LOC: HO.HGS 10:47
PROVIDERS: PCP Internal Medicine; Visit Provider Surgery
DX: H93.90 Unspecified disorder of ear, unspecified ear (principal)
CPT/HCPCS: 99204

== ENCOUNTER 2024-12-31 13:12 | Outpatient (REF) | payer OTHER, SELFPAY | END 2024-12-31 13:13 | disposition home or self-care (01) | LOC: HO.LNP 13:12 | PROVIDERS: PCP Internal Medicine; Visit Provider Surgery | DX: H93.8X1 Other specified disorders of right ear (principal) | CPT/HCPCS: 11440; 11441; 88304 ==

== ENCOUNTER 2024-12-31 13:12 | Outpatient (AMB) | payer OTHER, SELFPAY ==
--- NOTE | 2024-12-31 13:39 | A.OFFVIS_ITS ---
Vital Signs 3 12/31/24 13:41 Height 5 ft 8 in Weight 202 lb 13.204 oz BMI 30.8 BP 120/72 Blood Pressure Location Lt brachial Position Sitting Intake Visit Reasons: Exc lesion~Rt superior helix Intake Note: Patient is seen for office procedure, excision of skin lesion of the right ear. Pt c/o: here for removal of ear lesion Accounts Receivable Administrator Required: Yes Accounts Receivable Administrator Services: Accounts Receivable Administrator Offered & Declined Accompanied by: Family/Other Allergies ibuprofen Allergy (Intermediate, Verified 12/31/24 13:41) contraindicated Medication List - Last Reconciled 12/31/24 by Michael Cochran MD allopurinol 300 mg PO DAILY 90 days lisinopril 5 mg PO DAILY 90 days HPI Comments Details: Patient returns today for excision of the right ear lesion. He denies any changes since his last visit. [facility] Medical History CKD (chronic kidney disease) stage 3, GFR 30-59 ml/min Physical exam Obesity (BMI 30-39.9) Lumbar pain Vasectomy evaluation Gout Proteinuria Essential hypertension Surgical History History of colonoscopy History of vasectomy Family History Father Diabetes Hypertension CVD (cardiovascular disease) Mother Hypertension Maternal Grandfather Cancer Family/Other Substance use disorder Mental health disorder Social History Housing: Apartment Alcohol intake: current Alcohol intake frequency: a few times a week Alcohol type: beer Patient Tobacco Use Status: Former Tobacco user Tobacco use type: Cigarette e-Cigarette/Vaping Use: Never Used Second Hand Smoke Exposure: No service: No Current occupational status: employed Current occupational exposures/hazards: No Cognitive needs: No Hearing needs: No Vision needs: Yes Physical Exam Vital Signs: Last Vital Signs BP 120/72 12/31/24 13:41 BMI result Body Mass Index 30.8 Const General: cooperative and no acute distress Nutritional Appearance: well nourished Orientation/consciousness: patient oriented x3 Limitations: no limitations HEENT Other: Lesion right ear measuring approximately 2-3 mm in diameter, with a pearly surface: Head: Yes normocephalic and Yes atraumatic Ears: hearing grossly normal bilaterally Resp Effort & Inspection: normal respiratory effort, no audible wheezes, no cough and no respiratory distress Cardio Jugular venous distension: no JVD GI Inspection: Yes normal to inspection Skin Other: Warm, dry, no rash Neuro General: patient oriented x3 Extrem General: Yes no clubbing, cyanosis or edema Office Procedures Excision Details: Preoperative diagnosis: Skin lesion helix of right ear Postoperative diagnosis: Same Procedure: Excision skin lesion right ear, 3 mm Surgeon: Michael Cochran MD Bale Breaker Operator: Lambert Morris PA-C Anesthesia: Lidocaine 1% Indications for procedure: 49-year-old male with a hard painful lesion of the right superior helix right ear approximately 3 mm in diameter Operative findings: 3 mm hard lesion suggestive of a basal cell Specimen: Skin lesion right ear Estimated blood loss: 1 mL Complications: None Procedure details: Patient was brought to the procedure room and placed in a supine position with his head turned to the left. The site of surgery was confirmed by the patient in the right ear. Assuring informed consent the skin was prepped with Betadine and draped in a sterile fashion. Local anesthesia was then infiltrated around the lesion. An elliptical incision was then created in a radial fashion to ellipse the skin lesion. Lesion was excised off of the cartilage. Light pressure was held to maintain hemostasis. Skin was then closed using interrupted 5 0 nylon sutures. The patient tolerated the procedure well. A dressing of bacitracin and sterile bandage was then applied. He will follow up in the office in approximately 1 week. He was discharged in stable condition. 72199-Ophkjlvx face/ear/eyelid/nose/lip/mucous membrane <0.5cm Procedure code (CPT) selection complete Assessment & Plan Assessment & Plan (1) Ear lesion: Code(s): H93.90 - Unspecified disorder of ear, unspecified ear Category: Medical Plan Follow up in 1 week for suture removal. Pathology pending. Orders: Orders 2 Surgical Today H93.90 - Unspecified disorder of ear, unspecified ear Coding Level of Care Code Procedure Only Diagnoses Ear lesion H93.90 CPT Codes Face/Ear/Eyelid/Nose/Lip/Mucous Membrane - CPT: 70442-Adcsmoly face/ear/eyelid/nose/lip/mucous membrane <0.5cm ([id number])
[2024-12-31 13:41] VITALS: BP 120/72; BMI 30.8
--- OUTSIDE RECORDS SUMMARY | 2024-12-31 15:38 | XMS_ITS | Clinical Summary ---
Author Organization [employer] Address [address] [place] [address] 7 [place] [address] Care Team Providers Care Forensic Ballistics Expert Name Role Phone Unavailable Primary Care Provider Unavailabl e Allergies Active Allergy Reactions Criticality Noted Date Comments Ibuprofen Other 07/11/2020 Contraindicated. Medications allopurinol (Zyloprim) 300 MG tablet Take 300 mg the
== END 2024-12-31 13:49 | disposition home or self-care (01) ==
LOC: HO.HGS 13:13
PROVIDERS: PCP Internal Medicine; Visit Provider Surgery
DX: H61.001 Unspecified perichondritis of right external ear (principal)
CPT/HCPCS: 11441

== ENCOUNTER 2025-01-08 12:09 | Outpatient (AMB) | payer OTHER, SELFPAY ==
--- NOTE | 2025-01-08 12:10 | A.OFFVIS_ITS ---
Vital Signs 3 01/08/25 12:11 Height 5 ft 8 in Weight 202 lb 13.204 oz BMI 30.8 Intake Visit Reasons: s/p exc Rt sup helix Intake Note: Patient here s/p wide local excision on Rt superior helix. Patient c/o: Surgery: () 12-31-2024 Occupational Health Professional Required: Yes Occupational Health Professional Language: Strand Forming Machine Operator Services: Occupational Health Professional Present Occupational Health Professional Name: Ana Luisa Information Interpreted: non-clinical & clinical Accompanied by: Spouse Allergies ibuprofen Allergy (Intermediate, Verified 01/08/25 12:11) contraindicated HPI HPI s/p exc Rt sup helix: Details: In-house zigzag elastic attacher Carlota used for this evaluation. Patient presenting with partner. Doing well. Initially had some pain after the procedure and some bleeding with cleaning the area this has since resolved. He states that he has to have pain when lying on that side prior to the procedure but this has resolved. He denies any fevers or chills. Denies any pus draining from the area. His only concern is that it seems a bit swollen. Similar to how it was prior to the procedure [facility] Medical History CKD (chronic kidney disease) stage 3, GFR 30-59 ml/min Physical exam Obesity (BMI 30-39.9) Lumbar pain Vasectomy evaluation Gout Proteinuria Essential hypertension Surgical History Hx of surgical procedure (12/31/24) History of colonoscopy History of vasectomy Family History Father Diabetes Hypertension CVD (cardiovascular disease) Mother Hypertension Maternal Grandfather Cancer Family/Other Substance use disorder Mental health disorder Social History Housing: Apartment Alcohol intake: current Alcohol intake frequency: a few times a week Alcohol type: beer Patient Tobacco Use Status: Former Tobacco user Tobacco use type: Cigarette e-Cigarette/Vaping Use: Never Used Second Hand Smoke Exposure: No service: No Current occupational status: employed Current occupational exposures/hazards: No Cognitive needs: No Hearing needs: No Vision needs: Yes Physical Exam Vital Signs: BMI result Body Mass Index 30.8 Const General: comfortable and no acute distress Orientation/consciousness: patient oriented x3 HEENT Outer ear/TM images: 2 1. Excision site, [address] No palpable fluid collection, no erythema. Mildly edematous. Nontender some mild scabbing Neuro General: patient oriented x3 Assessment & Plan Assessment & Plan (1) Ear lesion: Code(s): H93.90 - Unspecified disorder of ear, unspecified ear Category: Medical Plan 49-year-old male returning to the office after excision of lesion on right ear for evaluation and suture removal. Overall patient doing well. Only concern is the swelling at the excision site, states that it is similar to when it was prior to surgery. He initially had some pain and some bleeding from the site but this is resolved. He denies any pus drainage from the area, denies fevers or chills. In regards to the swelling it is likely due to the sutures that are in place, reassured him that this is likely the body responding to the foreign body that is the sutures and now that they have been removed that would explain this to go down over time. He is okay to put some ice on the area to help with some of the inflammation for a couple minutes at a time. On exam the area appears to be healing well. There was some mild edema but no palpable fluid collection, no discharge. There was some scabbing over the sutures in the incision site appears intact. I removed the 3 sutures without any complications. 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 At this point patient no longer requiring follow up, can return as needed with any questions or concerns in the future. Coding Level of Care Code Est Pt Level 3 (48205) Diagnoses Ear lesion H93.90
[2025-01-08 12:11] VITALS: BMI 30.8
--- OUTSIDE RECORDS SUMMARY | 2025-01-08 13:16 | XMS_ITS | Clinical Summary ---
Author Organization [facility] Address [address] [facility] [address] [place] [address] Phone Care Team Providers Care Veterinary Assistant Name Role Phone Madeleine Polanco MD Primary Care Provider Allergies Active Allergy Reactions Criticality Noted Date [...] Relation Comments Diabetes Father Heart disease Father [place] Hypertension Father Kidney disease Father Hypertension Mother [...] of 2 - PCV) 12/06/1995 Influenza Vaccine (#1) 2024 Insurance [facility] Health Care Teams Veterinary Assistant Relationship Specialty Start Date End Date Madeleine Polanco MD [address] [place] [address] PCP - General 04/21/20
--- OUTSIDE RECORDS SUMMARY | 2025-01-08 13:17 | XMS_ITS | Clinical Summary ---
Author Organization [employer] Address [address] [facility] 7t [place] [address] Care Team Providers Care Investments Manager Name Role Phone Unavailable Primary Care Provider Unavailabl e Allergies Active Allergy Reactions Criticality Noted Date Comments Ibuprofen Other 07/11/2020 Contraindicated. Medications allopurinol (Zyloprim) 300 MG tablet Take 300 mg by mouth in the morning. 04/14/2022 Active lisinopril 5 MG tablet Take 1 tablet by mouth Once per day. 08/02/2024 Active Active Problems No known active problems [...] 2022 2:12 PM EST Plan of Treatment Health Maintenance Due Date Last Done Comments CT Colonography 1976 Colonoscopy 1976 Colorectal Cancer Screening 1976 Depression Screening 1976 FIT DNA/Cologuard 1976 FIT 1976 FOBT 1976 HIV Screening 1976 Lipid Panel 1976 SDOH Screening 1976 Sigmoidoscopy 1976 Disability Screening 1976 Alcohol/Substance Use Screening 1988 Family Planning (PISQ) 12/06/1991 Hepatitis C Screening 1994 Hepatitis B Vaccines (1 of 3 - 19+ 3-dose series) 12/06/1995 COVID-19 Vaccine (4 - 2024-2 6 season) 2024 04/28/2021, 09/06/2020, 08/09/2020 Influenza Vaccine (#1) 2024 , 05/19/2018, 02/17/2017 Tobacco Screening 10/22/2025 10/22/2024 Zoster Vaccines (1 of 2) 2026 DTaP/Tdap/Td [...] patient's age to complete this topic Meningococcal B Vaccine Aged Out No l onger eligible based on patient's age to complete this topic Meningococcal Vaccine Aged Out No ronan jennifer eligible based on patient's age to complete this topic Pneumococcal Vaccine: Pediatrics (0 to 5 Years) and At-Risk Patients (6 to 49) Years Aged Out No longer eligible b ased on patient's age to complete this topic RSV under 20 months Aged Out No longe r eligible based on patient's age to complete this topic Rotavirus Vaccines Aged Out No longer eligible based on patient's age to complete this topic Insurance [facility] , [address] [place] [address]
== END 2025-01-08 12:25 | disposition home or self-care (01) ==
LOC: HO.HGS 12:09
PROVIDERS: PCP Internal Medicine
DX: H93.90 Unspecified disorder of ear, unspecified ear (principal)
CPT/HCPCS: 99024

== ENCOUNTER 2025-02-07 06:20 | Outpatient (REF) | payer OTHER, SELFPAY ==
--- OUTSIDE RECORDS SUMMARY | 2025-02-07 06:23 | XMS_ITS | Clinical Summary ---
Author Organization [employer] Address [address] [facility] 7t [place] [address] Care Team Providers Care Ethnoarchaeologist Name Role Phone Unavailable Primary Care Provider [...] patient's age to complete this topic Insurance [facility] , [address] [place] [address]
--- OUTSIDE RECORDS SUMMARY | 2025-02-07 06:23 | XMS_ITS | Clinical Summary ---
Author Organization [facility] Address [address] [facility] [address] [place] [address] Phone Care Team Providers Care Pinion And Wheel Truer Name Role Phone Madeleine Polanco MD Primary Care Provider [phone] Allergies Active Allergy Reactions Criticality Noted Date [...] Relation Comments Diabetes Father Heart disease Father [place] Hypertension Father Kidney disease Father Hypertension Mother [...] PCV) 12/06/1995 Influenza Vaccine (#1) 2024 Insurance [facility] Health Care Teams Pinion And Wheel Truer Relationship Specialty Start Date End Date Madeleine Polanco MD [address] [place] [address] PCP - General 04/21/20
[2025-02-07 07:26] LABS: Hematocrit 44.2 % (42.0-52.0); Hemoglobin 14.4 g/dl (14.0-18.0); Mean Corpuscular HGB Conc 32.6 g/dl (31.0-36.0); Mean Corpuscular Hemoglobin 26.8 pg (27.0-33.0); Mean Corpuscular Volume 82.3 fL (80.0-98.0); NRBC Abs Auto 0.000 X10*3/uL (0.0-0.012); NRBC Pct Auto 0.0 /100WBC (0.0-0.2); Platelet Count 265 X10*3/uL (160-400); Red Blood Count 5.37 X10*6/uL (4.60-5.80); White Blood Count 7.6 X10*3/uL (4.8-10.8)
[2025-02-07 07:28] LABS: Appearance Urine Clear; Glucose Urine UA Negative (Negative); PH 5.5 (5.0-9.0); Specific Gravity - Urine 1.015 (1.005-1.025)
[2025-02-07 07:38] LABS: Alanine Aminotransferase 34 U/L (0-40); Albumin Level 4.5 g/dL (3.5-5.0); Alkaline Phosphatase 60 U/L (39-117); Anion Gap 11 (12-20); Aspartate Amino Transferase 32 U/L (5-37); Blood Urea Nitrogen 14 mg/dL (9-16); Calcium 9.2 mg/dL (8.4-10.2); Carbon Dioxide 27 mmol/L (22-29); Chloride 107 mmol/L (96-108); Cholesterol 172 mg/dL (<200); Estimated Glomerular Filt Rate 60; HDL Cholesterol 47 mg/dL (>40); Potassium 4.1 mmol/L (3.3-5.1); Sodium 141 mmol/L (135-145); Total Protein 7.1 g/dL (6.5-8.0); Triglycerides 98 mg/dL (<150); Uric Acid 6.4 mg/dL (3.4-7.0)
[2025-02-07 07:41] LABS: Parathyroid Hormone Intact 137.7 pg/mL (8.7-77.1)
[2025-02-07 08:05] LABS: Total Protein Urine Random 21 mg/dL (<12)
== END 2025-02-07 06:21 | disposition home or self-care (01) ==
LOC: HO.LAB 06:20
PROVIDERS: PCP Internal Medicine; Visit Provider Internal Medicine Hypertension Specialist
DX: Z00.00 Encounter for general adult medical examination without abnormal findings (principal); I10 Essential (primary) hypertension; R80.9 Proteinuria, unspecified; M1A.0710 Idiopathic chronic gout, right ankle and foot, without tophus (tophi)
CPT/HCPCS: 36415; 80053; 80061; 81003; 82570; 83970; 84156; 84550; 85027

== ENCOUNTER 2025-02-11 09:13 | Outpatient (AMB) | payer OTHER, SELFPAY ==
[2025-02-11 09:19] VITALS: BP 96/70; PULSE 87; O2SAT 96; BMI 31.2
--- NOTE | 2025-02-11 09:19 | HO.NEPHOV ---
Vital Signs 02/11/25 09:19 Height 5 ft 8 in Weight 205 lb BMI 31.2 BP 96/70 Blood Pressure Location Lt brachial Position Sitting Pulse 87 Pulse Source Pulse Oximeter Pulse Oximetry (%) 96 Oxygen Delivery Method Room Air Intake Visit Reasons: F/U Operations Accountant Required: Yes Operations Accountant Name: Ankita [id number] Accompanied by: Self / Same As Patient Allergies ibuprofen Allergy (Intermediate, Verified 02/11/25 09:21) contraindicated Medication List - Last Reconciled 02/11/25 by Anthony Kendrick MD allopurinol 300 mg PO DAILY 90 days lisinopril 5 mg PO DAILY 90 days HPI Comments Details: Middle-aged man with a history of proteinuria and hypertension. About a year ago he moved from [place]. He was told that he had proteinuria. However 20 fluid collection showed protein excretion of 4 mg with a urine protein creatinine ratio for test 84. Serum creatinine has been stable between 1.0-1.2 mg/dL. . No other history of kidney disease. This is a family history of end stage renal disease father and his uncle were on dialysis. But they had diabetes for almost 20 years. History of gout. The creatinine clearance was 100 mL/minute with serum creatinine 1.2 based on 20 fluid collection back in January 2022. Today has no new complaints Had 1 episode gout in May 2023 08/14/24 Doing well Drinks less beer No recent gout episodes 02/11/25 The patient is a 49-year-old male presenting for management of proteinruia, gout and hypertension. The patient experienced an episode of gout in November, which he manages with colchicine taken as needed, sometimes once or twice a day during flare-ups. He reports no issues with urination and maintains a stable protein level in his urine. The patient's blood pressure is generally low, except in the mornings before taking lisinopril 5 mg, which stabilizes it throughout the day. He adheres to dietary recommendations to reduce salt intake and increase water consumption. [facility] Medical History CKD (chronic kidney disease) stage 3, GFR 30-59 ml/min Physical exam Obesity (BMI 30-39.9) Lumbar pain Vasectomy evaluation Gout Proteinuria Essential hypertension Surgical History Hx of surgical procedure (12/31/24) History of colonoscopy History of vasectomy Family History Father Diabetes Hypertension CVD (cardiovascular disease) Mother Hypertension Maternal Grandfather Cancer Family/Other Substance use disorder Mental health disorder Social History Housing: Apartment Alcohol intake: current Alcohol intake frequency: a few times a week Alcohol type: beer Patient Tobacco Use Status: Former Tobacco user Tobacco use type: Cigarette e-Cigarette/Vaping Use: Never Used Second Hand Smoke Exposure: No service: No Current occupational status: employed Current occupational exposures/hazards: No Cognitive needs: No Hearing needs: No Vision needs: Yes Physical Exam Vital Signs: Last Vital Signs Pulse 87 02/11/25 09:19 BP 96/70 02/11/25 09:19 Pulse Ox 96 02/11/25 09:19 Oxygen Delivery Method Room Air 02/11/25 09:19 BMI result Body Mass Index 31.2 Results Reviewed Nephrology Results: Hgb, (14.0-18.0) 14.4 g/dl 02/07/25 WBC, (4.8-10.8) 7.6 X10*3/uL 02/07/25 Plt Count, (160-400) 265 X10*3/uL 02/07/25 Sodium, (135-145) 141 mmol/L 02/07/25 Potassium, (3.3-5.1) 4.1 mmol/L 02/07/25 Chloride, (96-108) 107 mmol/L 02/07/25 Carbon Dioxide, (22-29) 27 mmol/L 02/07/25 BUN, (9-16) 14 mg/dL 02/07/25 Creatinine, (0.5-1.4) 1.28 mg/dL 02/07/25 Calcium, (8.4-10.2) 9.2 mg/dL Δ 02/07/25 PTH Intact, (8.7-77.1) 137.7 pg/mL H 02/07/25 Urine Protein, (Neg-Trace) Trace mg/dL 02/07/25 Urine Creatinine 129.07 mg/dL 02/07/25 Renal US 03/19/20 Assessment & Plan Assessment & Plan (1) Essential hypertension: Code(s): I10 - Essential (primary) hypertension Category: Medical Plan: Blood pressure is rather LOW Keep Lisinopril at 5 mg QD Stay on ow-sodium diet. (2) Proteinuria: Code(s): R80.9 - Proteinuria, unspecified Category: Medical Qualifiers: Proteinuria type: unspecified Qualified Code(s): R80.9 - Proteinuria, unspecified Plan: Minimal proteinuria. Continue lisinopril for renal protection ,monitor urine proteinexcretion (3) CKD (chronic kidney disease) stage 3, GFR 30-59 ml/min: Code(s): N18.30 - Chronic kidney disease, stage 3 unspecified Category: Medical Plan: Mild CKD in a setting of hypertension however has been a recent bump in serum creatinine Most likely due to ACEi decreased Lisinopril to 5 mg ( 02/21/24) serum creatinine essentially unchanged Shall follow (4) Gout: Code(s): M10.9 - Gout, unspecified Category: Medical Qualifiers: Gout site: foot Gout etiology: unspecified cause Chronicity: chronic Laterality: right Qualified Code(s): M1A.0710 - Idiopathic chronic gout, right ankle and foot, without tophus (tophi) Plan: History of gout. He is on colchicine. No further episodes of gout. Will recheck the serum uric acid. 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, right ankle and foot, without tophus (tophi), R80.9 - Proteinuria, unspecified Uric Acid 6 Months M1A.0710 - Idiopathic chronic gout, right ankle and foot, without tophus (tophi), R80.9 - Proteinuria, unspecified Creatinine Urine Today M1A.0710 - Idiopathic chronic gout, right ankle and foot, without tophus (tophi), R80.9 - Proteinuria, unspecified Basic Metabolic Panel Today M1A.0710 - Idiopathic chronic gout, right ankle and foot, without tophus (tophi), R80.9 - Proteinuria, unspecified UA and rflx microscopic Today M1A.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
== END 2025-02-11 09:40 | disposition home or self-care (01) ==
LOC: HO.HKA 09:13
PROVIDERS: PCP Internal Medicine; Visit Provider Internal Medicine Hypertension Specialist
DX: I10 Essential (primary) hypertension (principal); R80.9 Proteinuria, unspecified; N18.30 Chronic kidney disease, stage 3 unspecified; M1A.0710 Idiopathic chronic gout, right ankle and foot, without tophus (tophi)
CPT/HCPCS: 99214

== ENCOUNTER 2025-02-11 09:57 | Outpatient (REF) | payer OTHER, SELFPAY ==
--- OUTSIDE RECORDS SUMMARY | 2025-02-11 11:42 | XMS_ITS | Clinical Summary ---
Author Organization [facility] Address [address] [place] [address] Phone Care Team Providers Care Donor Services Coordinator Name Role Phone Madeleine Polanco MD Primary Care Provider [phone] Allergies Active Allergy Reactions Criticality Noted Date [...] Relation Comments Diabetes Father Heart disease Father [place] Hypertension Father Kidney disease Father Hypertension Mother [...] PCV) 12/06/1995 Influenza Vaccine (#1) 2024 Insurance [facility] Health Care Teams Donor Services Coordinator Relationship Specialty Start Date End Date Madeleine Polanco MD [address] [place] [address] PCP - General 04/21/20
[2025-02-11 13:33] LABS: Appearance Urine Clear; Glucose Urine UA Negative (Negative); PH 5.5 (5.0-9.0); Specific Gravity - Urine 1.015 (1.005-1.025); UMIC TRIGGER UA YES
[2025-02-11 13:53] LABS: Anion Gap 9 (12-20); Blood Urea Nitrogen 14 mg/dL (9-16); Calcium 9.5 mg/dL (8.4-10.2); Carbon Dioxide 30 mmol/L (22-29); Chloride 106 mmol/L (96-108); Estimated Glomerular Filt Rate > 60; Potassium 3.8 mmol/L (3.3-5.1); Sodium 141 mmol/L (135-145)
[2025-02-11 14:17] LABS: Total Protein Urine Random 35 mg/dL (<12)
== END 2025-02-11 09:58 | disposition home or self-care (01) ==
LOC: HO.10HDL 09:57
PROVIDERS: Visit Provider Internal Medicine Hypertension Specialist
DX: M1A.0710 Idiopathic chronic gout, right ankle and foot, without tophus (tophi) (principal); R80.9 Proteinuria, unspecified
CPT/HCPCS: 36415; 80048; 81001; 82570; 84156